=== PATIENT | female | born 1955 | race Caucasian/White ===

== ENCOUNTER 2016-03-27 16:48 | Emergency (ER) | payer MEDICARE, MEDICAID | END 2016-03-27 18:25 | disposition left against medical advice (07) | LOC: ER 16:48 | DX: Z53.21 Procedure and treatment not carried out due to patient leaving prior to being seen by health care provider (principal) ==

== ENCOUNTER 2016-03-30 17:11 | Emergency (ER) | payer MEDICARE, MEDICAID ==
[2016-03-30 17:31] VITALS: BP 121/67; TEMP 98.7
[2016-03-30] MEDS ORDERED: FUROSEMIDE 40 MG TAB PO ONE (17:46)
--- NOTE | 2016-03-30 17:48 | ED.PDOC ---
History of Present Illness - General Chief Complaint: General Stated Complaint: bilateral leg and foot swelling Time Seen by Provider: 03/30/16 17:15 Source: patient Exam Limitations: no limitations - History of Present Illness Initial Comments: The patient is a 60-year-old female presenting to the emergency room secondary to painful edema. She reports that she's had edema for the last month and is only getting worse. She's feeling a little bit of shortness of breath when she lays back but mainly she feels that that is due to sleep possible sleep apnea issues that may not yet have been addressed. No cough. No shortness of breath otherwise. No palpitations. No syncope or near syncope. She is not on a daily diuretic. She was recently given gabapentin to take in addition to her Lyrica and meloxicam. Timing/Duration: 1 week, constant, getting worse Severity: moderate Improving Factors: nothing Worsening Factors: nothing Associated Symptoms: denies symptoms Allergies/Adverse Reactions: Allergies NO KNOWN ALLERGY Allergy (Verified 09/15/15 14:08) Home Medications: Ambulatory Orders Dabigatran Etexilate Mesylate [Pradaxa] 150 mg PO DAILY 09/20/14 Lisinopril 10 mg PO DAILY 09/20/14 Meloxicam 15 mg PO DAILY 09/20/14 Metoprolol Tartrate 25 mg PO BID 09/20/14 Sertraline HCl 100 mg PO DAILY 09/20/14 Tramadol HCl 50 mg PO QID #20 tab 04/20/15 raNITIdine HCL [Zantac] 150 mg PO BID #20 tab 04/20/15 Prednisone [Deltasone] 40 mg PO DAILY #20 tab 10/15/15 Furosemide [Lasix] 40 mg PO DAILY #3 tab 03/30/16 Review of Systems - Review of Systems Constitutional: States: no symptoms reported EENTM: States: no symptoms reported Respiratory: States: no symptoms reported Cardiology: States: no symptoms reported Gastrointestinal/Abdominal: States: no symptoms reported Genitourinary: States: no symptoms reported Musculoskeletal: States: see HPI Skin: States: see HPI Neurological: States: other - chronic neuropathic pain Hematologic/Lymphatic: States: no symptoms reported All other Systems: No Change from Baseline Past Medical History (General) - Patient Medical History Hx Seizures: No Hx Stroke: No Hx Dementia: No Hx Asthma: No Hx of COPD: No Hx Cardiac Disorders: No Hx Congestive Heart Failure: No Hx Pacemaker: No Hx Hypertension: Yes Hx Thyroid Disease: No Hx Diabetes: No Hx Gastroesophageal Reflux: Yes Hx Renal Disease: No Hx Cancer: Yes - L breast Hx of HIV: No Hx Hepatitis C: No Hx MRSA: No MRSA Source:: Wound Surgical History: other - Vaccination History Hx Tetanus, Diphtheria Vaccination: No Hx Influenza Vaccination: Yes Hx Pneumococcal Vaccination: No Immunizations Up to Date: No - Social History Hx Tobacco Use: No Hx Chewing Tobacco Use: No Hx Alcohol Use: No Hx Substance Use: No Hx Substance Use Treatment: No Hx Depression: No Hx Physical Abuse: No Hx Emotional Abuse: No Hx Suspected Abuse: No - Activities of Daily Living Hospice Agency (if applicable):: None - Female History Patient is a Female of Child Bearing Age (10 -59 yrs old): No Patient : No Family Medical History - Family History Mother Living Status: Cause of : had impaction in colon Hx Family Hypertension: Yes Hx Cardiac Disease: Yes Hx Family Diabetes: Yes Physical Exam - Physical Exam General Appearance: Alert, Comfortable, No apparent distress Eye Exam: bilateral normal Ears, Nose, Throat: normal ENT inspection, normal pharynx Neck: full range of motion, supple, normal inspection Respiratory: chest non-tender, lungs clear, normal breath sounds, no respiratory distress, no accessory muscle use Cardiovascular/Chest: normal peripheral pulses, regular rate, rhythm Peripheral Pulses: radial,right: 2+, radial,left: 2+, dorsalis pedis,right: 2+, dorsalis pedis,left: 2+ Gastrointestinal/Abdominal: non tender - obese, soft Extremity: normal range of motion, no calf tenderness, normal capillary refill, pedal edema, swelling Neurologic: crepe sole wire brusher II-XII nml as tested, alert, normal mood/affect, oriented x 3 Skin Exam: normal color Comments: Vital Signs - 24 hr 03/30/16 17:23 Temperature 98.7 F Pulse Rate [ 64 pulse ox] Respiratory 20 Rate Blood Pressure 121/67 [Right Arm] O2 Sat by Pulse 95 Oximetry Progress - Progress Progress: 03/30/16 17:49 the patient is a 60-year-old female with painful edema to bilateral lower extremities. This does appear to have been a slow progression. It is likely related to several of her medications that she is taking. She is going to receive a large dose of oral Lasix here today and will be placed on 40 mg daily for the next 3 days. She needs to follow-up with her primary care doctor before the weekend for reevaluation of the edema and possible further medication adjustments to the likely offending agents. She also likely needs to be set up for a sleep apnea study if she has not had one in the past. Her probability of having sleep apnea is high. This may also be contributing to the edema. She can return to the emergency room for any acute worsening. Departure - Departure Clinical Impression: Edema extremities Disposition: Discharge to Home or Self Care Condition: Fair Departure Forms: ED Discharge - Pt. Copy, Patient Portal Self Enrollment Instructions: DI for Dependent Edema Diet: low salt diet Activity: increase activity as tolerated Referrals: Charu Tirado NP [Primary Care Provider] - 1-5 Days Prescriptions: Furosemide [Lasix] 40 mg PO DAILY #3 tab Home Medications: Ambulatory Orders Dabigatran Etexilate Mesylate [Pradaxa] 150 mg PO DAILY 09/20/14 Lisinopril 10 mg PO DAILY 09/20/14 Meloxicam 15 mg PO DAILY 09/20/14 Metoprolol Tartrate 25 mg PO BID 09/20/14 Sertraline HCl 100 mg PO DAILY 09/20/14 Tramadol HCl 50 mg PO QID #20 tab 04/20/15 raNITIdine HCL [Zantac] 150 mg PO BID #20 tab 04/20/15 Prednisone [Deltasone] 40 mg PO DAILY #20 tab 10/15/15 Furosemide [Lasix] 40 mg PO DAILY #3 tab 03/30/16 Additional Instructions: the patient is a 60-year-old female with painful edema to bilateral lower extremities. This does appear to have been a slow progression. It is likely related to several of her medications that she is taking. She is going to receive a large dose of oral Lasix here today and will be placed on 40 mg daily for the next 3 days. She needs to follow-up with her primary care doctor before the weekend for reevaluation of the edema and possible further medication adjustments to the likely offending agents. She also likely needs to be set up for a sleep apnea study if she has not had one in the past. Her probability of having sleep apnea is high. This may also be contributing to the edema. She can return to the emergency room for any acute worsening.
[2016-03-30 18:02] VITALS: O2SAT 97
== END 2016-03-30 18:02 | disposition home or self-care (01) ==
LOC: ER 17:11
DX: R60.0 Localized edema (principal); I10 Essential (primary) hypertension; K21.9 Gastro-esophageal reflux disease without esophagitis; Z85.3 Personal history of malignant neoplasm of breast; Z79.899 Other long term (current) drug therapy

== ENCOUNTER 2016-08-14 21:30 | Emergency (ER) | payer MEDICARE, MEDICAID ==
[2016-08-14 21:56] VITALS: BP 128/60; TEMP 98.9; O2SAT 95
--- NOTE | 2016-08-14 22:29 | RAD ---
EXAM DESCRIPTION: Elbow,Right 2 Views (accession [id number]), Forearm,Right (accession [id number]) CLINICAL HISTORY: fall COMPARISON: None FINDINGS: AP, lateral and oblique views of the right elbow, and two views of the right forearm were submitted. There is a nondisplaced radial head fracture. Abnormal anterior and posterior fat pad signs compatible with a joint fluid collection. There is no radiopaque foreign body material. IMPRESSION: Acute nondisplaced radial head fracture. Electronically signed by: Gordo Cohn MD 08/14/2016 10:28 PM CDT
--- NOTE | 2016-08-14 22:29 | RAD ---
EXAM DESCRIPTION: Elbow,Right 2 Views (accession [id number]), Forearm,Right (accession [id number]) CLINICAL HISTORY: fall COMPARISON: None FINDINGS: AP, lateral and oblique views of the right elbow, and two views of the right forearm were submitted. There is a nondisplaced radial head fracture. Abnormal anterior and posterior fat pad signs compatible with a joint fluid collection. There is no radiopaque foreign body material. IMPRESSION: Acute nondisplaced radial head fracture. Electronically signed by: Gordo Cohn MD 08/14/2016 10:28 PM CDT
--- NOTE | 2016-08-14 22:47 | ED.PDOC ---
History of Present Illness - General Chief Complaint: Upper Extremity Injury Stated Complaint: r. arm pain Time Seen by Provider: 08/14/16 22:33 Source: patient Exam Limitations: no limitations - History of Present Illness Initial Comments: the patient is a 61-year-old female presenting to the emergency room secondary to pain in her right elbow. The patient had walked around a corner and tripped over a fishing pole and had fallen and tried to catch herself on the door jam. In doing so she injured her right elbow. She has pain to the lateral aspect. She does appear to be neurovascularly preserved and there does not appear to be any significant deformity or laceration there. She has pain with both active and passive range of motion. No pain in the shoulder or the hand or wrist at this time. No other injuries. Timing/Duration: momentarily Severity: moderate Improving Factors: immobilization Worsening Factors: movement Associated Symptoms: denies symptoms Allergies/Adverse Reactions: Allergies NO KNOWN ALLERGY Allergy (Verified 09/15/15 14:08) Home Medications: Ambulatory Orders Dabigatran Etexilate Mesylate [Pradaxa] 150 mg PO DAILY 09/20/14 Lisinopril 10 mg PO DAILY 09/20/14 Meloxicam 15 mg PO DAILY 09/20/14 Metoprolol Tartrate 25 mg PO BID 09/20/14 Sertraline HCl 100 mg PO DAILY 09/20/14 Tramadol HCl 50 mg PO QID #20 tab 04/20/15 raNITIdine HCL [Zantac] 150 mg PO BID #20 tab 04/20/15 Prednisone [Deltasone] 40 mg PO DAILY #20 tab 10/15/15 Furosemide [Lasix] 40 mg PO DAILY #3 tab 03/30/16 Txmpactdqlfmb-Udgz-Mwdgwvaiji [Fioricet] 1 ea PO Q8H PRN #21 tab 08/14/16 Review of Systems - Review of Systems Review of Systems: 08/14/16 22:46 for change in baseline symptoms or new symptoms Constitutional: States: no symptoms reported EENTM: States: no symptoms reported Respiratory: States: no symptoms reported Cardiology: States: no symptoms reported Gastrointestinal/Abdominal: States: no symptoms reported Genitourinary: States: no symptoms reported Musculoskeletal: States: see HPI Skin: States: no symptoms reported Neurological: States: no symptoms reported Endocrine: States: no symptoms reported All other Systems: No Change from Baseline Past Medical History (General) - Patient Medical History Hx Seizures: No Hx Stroke: No Hx Dementia: No Hx Asthma: No Hx of COPD: No Hx Cardiac Disorders: No Hx Congestive Heart Failure: No Hx Pacemaker: No Hx Hypertension: Yes Hx Thyroid Disease: No Hx Diabetes: No Hx Gastroesophageal Reflux: Yes Hx Renal Disease: No Hx Cancer: Yes Hx of HIV: No Hx Hepatitis C: No Hx MRSA: No MRSA Source:: Wound Surgical History: cholecystectomy - Vaccination History Hx Tetanus, Diphtheria Vaccination: No Hx Influenza Vaccination: Yes Hx Pneumococcal Vaccination: No Immunizations Up to Date: Yes - Social History Hx Tobacco Use: No Hx Chewing Tobacco Use: No Hx Alcohol Use: No Hx Substance Use: No Hx Substance Use Treatment: No Hx Depression: No Hx Physical Abuse: No Hx Emotional Abuse: No Hx Suspected Abuse: No - Activities of Daily Living Hospice Agency (if applicable):: None - Female History Patient is a Female of Child Bearing Age (10 -59 yrs old): No Patient : No Family Medical History - Family History Mother Family History: Unknown Living Status: Cause of : had impaction in colon Hx Family Hypertension: Yes Hx Cardiac Disease: Yes Hx Family Diabetes: Yes Physical Exam - Physical Exam General Appearance: Alert, No apparent distress Eye Exam: bilateral normal Ears, Nose, Throat: hearing grossly normal, normal pharynx Respiratory: no respiratory distress, no accessory muscle use Cardiovascular/Chest: normal peripheral pulses, other - regular rate Peripheral Pulses: radial,right: 2+, radial,left: 2+, dorsalis pedis,right: 2+, dorsalis pedis,left: 2+ Gastrointestinal/Abdominal: other - obese Rectal Exam: deferred Extremity: no calf tenderness, normal capillary refill, other - +1 edema bilateral lower extremities. Pain in the right elbow as described above. No obvious crepitus. Neurologic: jacquard loom weaver II-XII nml as tested, alert, normal mood/affect, oriented x 3 Skin Exam: normal color Comments: Vital Signs - 24 hr 08/14/16 21:50 Temperature 98.9 F Pulse Rate [ 70 left] Respiratory 18 Rate Blood Pressure 128/60 [left] O2 Sat by Pulse 95 Oximetry Progress - Progress Progress: 08/14/16 22:49 the patient is a 61-year-old female presenting with a right radial head fracture with minimal displacement. I do believe there is a good chance of this healing well in its current position. The patient will be placed in a sling. She is not a good candidate for a splint. The patient will be written Fioricet for pain control. She can additionally use Aleve twice daily with some food to help reduce discomfort. She should follow-up with Dr. Navas next week for a second opinion on the fracture. She is neurovascularly intact in the extremity at this time. ER warnings were given. - Results/Orders Results/Orders: x-ray of the right elbow shows a nondisplaced radial head fracture. No other obvious fracture seen. Does not appear to be significantly comminuted. Departure - Departure Clinical Impression: Radial head fracture, closed Qualifiers: Encounter type: initial encounter Fracture alignment: nondisplaced Laterality: right Qualified Code(s): S52.124A - Nondisplaced fracture of head of right radius, initial encounter for closed fracture Disposition: Discharge to Home or Self Care Condition: Fair Departure Forms: ED Discharge - Pt. Copy, Patient Portal Self Enrollment Instructions: DI for Elbow Fracture Diet: low fat, low cholesterol Activity: no pushing/pulling with affected limb Referrals: Charu Tirado NP [Primary Care Provider] - 1-2 Weeks Prescriptions: Xkcpkdgozbkfm-Sloj-Hpziwlatgo [Fioricet] 1 ea PO Q8H PRN #21 tab PRN Reason: Pain Home Medications: Ambulatory Orders Dabigatran Etexilate Mesylate [Pradaxa] 150 mg PO DAILY 09/20/14 Lisinopril 10 mg PO DAILY 09/20/14 Meloxicam 15 mg PO DAILY 09/20/14 Metoprolol Tartrate 25 mg PO BID 09/20/14 Sertraline HCl 100 mg PO DAILY 09/20/14 Tramadol HCl 50 mg PO QID #20 tab 04/20/15 raNITIdine HCL [Zantac] 150 mg PO BID #20 tab 04/20/15 Prednisone [Deltasone] 40 mg PO DAILY #20 tab 10/15/15 Furosemide [Lasix] 40 mg PO DAILY #3 tab 03/30/16 Qahzhsqrvojjs-Uayb-Ftnryxhsaj [Fioricet] 1 ea PO Q8H PRN #21 tab 08/14/16 Additional Instructions: the patient is a 61-year-old female presenting with a right radial head fracture with minimal displacement. I do believe there is a good chance of this healing well in its current position. The patient will be placed in a sling. She is not a good candidate for a splint. The patient will be written Fioricet for pain control. She can additionally use Aleve twice daily with some food to help reduce discomfort. She should follow-up with Dr. Navas next week for a second opinion on the fracture. She is neurovascularly intact in the extremity at this time. ER warnings were given.
[2016-08-14] MEDS: HYDROcodone 7.5MG/APAP 325MG 1 EA TAB PO ONE (22:50)
== END 2016-08-14 23:00 | disposition home or self-care (01) ==
LOC: ER 21:30
DX: S52.124A Nondisplaced fracture of head of right radius, initial encounter for closed fracture (principal); I10 Essential (primary) hypertension; K21.9 Gastro-esophageal reflux disease without esophagitis; Z85.9 Personal history of malignant neoplasm, unspecified; Z79.899 Other long term (current) drug therapy; W01.198A Fall on same level from slipping, tripping and stumbling with subsequent striking against other object, initial encounter; Y92.9 Unspecified place or not applicable

== ENCOUNTER → 2016-08-20 | Outpatient (CLI) | payer MEDICARE, MEDICAID ==
--- NOTE | 2016-08-20 14:19 | RAD ---
EXAM DESCRIPTION: Elbow,Right 3 Views CLINICAL HISTORY: PAIN IN RIGHT ELBOW COMPARISON: August 14, 2016 TECHNIQUE: AP, Lateral, and Oblique FINDINGS: Two views of the right elbow demonstrate evidence of a hemarthrosis with distention of the fat pads both anteriorly and posteriorly. Small bone fragments previously seen overlying the coronoid process on the lateral view are less apparent. On the current oblique view nondisplaced radial head fracture is evident the distal humerus and proximal ulna are essentially normal in appearance on today's study. IMPRESSION: 1. Nondisplaced radial head fracture with joint effusion or hemarthrosis. Electronically signed by: Gunnar Lerma MD 08/20/2016 2:18 PM CDT
== END | disposition home or self-care (01) ==
LOC: RAD 08:21
PROVIDERS: ATTEND Orthopaedic Surgery
DX: M25.521 Pain in right elbow (principal); R73.01 Impaired fasting glucose; E78.1 Pure hyperglyceridemia

== ENCOUNTER 2016-08-25 09:23 | Emergency (ER) | payer MEDICARE, MEDICAID ==
[2016-08-25] MEDS ORDERED: ONDANSETRON INJ 4 MG/2 ML VIAL IV ONE ×2 (09:43→10:23)
[2016-08-25] MEDS ORDERED: ASPIRIN TABLET 325 MG TAB PO ONE (09:43)
[2016-08-25] MEDS ORDERED: SODIUM CHLORIDE 0.9% (FLUSH) 10 ML SYG IV PRN (09:43)
[2016-08-25] MEDS ORDERED: NITROGLYCERIN 0.4 MG 25 EA TAB SL ONE (09:43)
--- NOTE | 2016-08-25 10:11 | RAD ---
Portable chest INDICATION: Chest pain IMPRESSION: Normal heart size. No failure. No focal infiltrate. No pleural effusion or pneumothorax. Electronically signed by: Nguyễn Stewart MD 08/25/2016 10:09 AM CDT
--- NOTE | 2016-08-25 10:22 | ED.PDOC ---
History of Present Illness - General Chief Complaint: Cardiovascular Problem Stated Complaint: chest pain Time Seen by Provider: 08/25/16 09:41 Source: patient Exam Limitations: no limitations - History of Present Illness Initial Comments: N/V/D STARTED 3 AM TODAY. V X 6 AND DIARHEA X 6. R-SIDED CHEST PAIN FROM BREAKING R ARM 1 WK AGO. EPIGASTRIC CRAMPING. . Improving Factors: nothing Worsening Factors: nothing Associated Symptoms: nausea/vomiting Allergies/Adverse Reactions: Allergies NO KNOWN ALLERGY Allergy (Verified 08/25/16 11:50) Home Medications: Ambulatory Orders Dabigatran Etexilate Mesylate [Pradaxa] 150 mg PO DAILY 09/20/14 Lisinopril 10 mg PO DAILY 09/20/14 Meloxicam 15 mg PO DAILY 09/20/14 Metoprolol Tartrate 25 mg PO BID 09/20/14 Sertraline HCl 100 mg PO DAILY 09/20/14 Tramadol HCl 50 mg PO QID #20 tab 04/20/15 raNITIdine HCL [Zantac] 150 mg PO BID #20 tab 04/20/15 ARIPiprazole [Abilify] 5 mg PO DAILY 08/25/16 Gabapentin 300 mg PO TID 08/25/16 Pregabalin [Lyrica] 100 mg PO TID 08/25/16 Review of Systems - Review of Systems Constitutional: States: weakness. Denies: fever EENTM: States: no symptoms reported Respiratory: Denies: cough, short of breath Cardiology: States: see HPI. Denies: edema, palpitations, syncope Gastrointestinal/Abdominal: States: diarrhea, nausea, vomiting, other - EPIGASTRIC DISCOMFORT BUT NO ISOLATED ABD PAIN. Genitourinary: States: no symptoms reported Musculoskeletal: States: joint pain Skin: States: no symptoms reported Neurological: States: no symptoms reported Endocrine: States: no symptoms reported Hematologic/Lymphatic: States: no symptoms reported All other Systems: Reviewed and Negative Past Medical History (General) - Patient Medical History Hx Seizures: No Hx Stroke: No Hx Dementia: No Hx Asthma: No Hx of COPD: No Hx Cardiac Disorders: No Hx Congestive Heart Failure: No Hx Pacemaker: No Hx Hypertension: Yes Hx Thyroid Disease: No Hx Diabetes: No Hx Gastroesophageal Reflux: Yes Hx Renal Disease: No Hx Cancer: Yes - breast Hx of HIV: No Hx Hepatitis C: No Hx MRSA: No MRSA Source:: Wound Surgical History: cholecystectomy - Vaccination History Hx Tetanus, Diphtheria Vaccination: No Hx Influenza Vaccination: No Hx Pneumococcal Vaccination: No - Social History Hx Tobacco Use: No Hx Chewing Tobacco Use: No Hx Alcohol Use: No Hx Substance Use: No Hx Substance Use Treatment: No Hx Depression: No Hx Physical Abuse: No Hx Emotional Abuse: No Hx Suspected Abuse: No - Activities of Daily Living Hospice Agency (if applicable):: None - Female History Patient is a Female of Child Bearing Age (10 -59 yrs old): No Patient : No Family Medical History - Family History Mother Family History: Unknown Living Status: Cause of : had impaction in colon Hx Family Hypertension: Yes Hx Cardiac Disease: Yes Hx Family Diabetes: Yes Physical Exam - Physical Exam General Appearance: Alert, Well Nourished Eye Exam: bilateral normal Ears, Nose, Throat: hearing grossly normal, normal ENT inspection, normal pharynx Neck: non-tender, full range of motion Respiratory: chest non-tender, lungs clear Cardiovascular/Chest: normal peripheral pulses, no gallop, no JVD, no murmur Peripheral Pulses: radial,right: 2+, radial,left: 2+ Gastrointestinal/Abdominal: normal bowel sounds, soft, no organomegaly, no pulsatile mass, other - UNCOMFORTABLE IN EPIGASTRIC BUT NO GUARDING OR REBOUND. Back Exam: no CVA tenderness Extremity: normal inspection, pedal edema Neurologic: alert, oriented x 3 Skin Exam: normal color, warm/dry Lymphatic: no adenopathy Progress - Progress Progress: 08/25/16 12:21 PT STATES SHE IS FEELING MUCH BETTER SINCE THE IVF AND IS REQUESTING TO GO HOME. HER R-SIDED CHEST PAIN WAS DUE TO THE R ARM FRACTURE. INITIAL C.P. W/U WAS PERFORMED TO ENSURE NO CARDIAC COMPROMISE AND WAS NEG. D-DIMER JUST SLIGHTLY ELEVATED BUT NOT TO THE LEVEL SEEN IN P.E., THUS CHEST C.T. IS NOT INDICATED AND NOT CLINICALLY C/W P.E. WBC 16. EKG SINUS; PATHOLOGIC Q-WAVE IN TWO CONTIGUOUS INFERIOR LEADS, INDICATIVE OF A FORMER AGE-INDETERMINATE INFERIOR INFARCT. INR, CXR, RAPID FLU, CMP, BNP, CARDIAC ENZ NEG. SAFE FOR D/C TO HOME WITH FOLLOW UP. PT DECLINED OFFER FOR ANTI-NAUSEA MEDS. 08/25/16 12:25 08/25/16 12:29 08/25/16 12:37 Departure - Departure Clinical Impression: Gastroenteritis, Musculoskeletal chest pain, Leukocytosis, Sinus tachycardia, Q waves suggestive of previous myocardial infarction Disposition: Discharge to Home or Self Care Condition: Good Departure Forms: ED Discharge - Pt. Copy, Patient Portal Self Enrollment Instructions: DI for Viral Gastroenteritis -- Adult Diet: bland diet Activity: increase activity as tolerated Referrals: Charu Tirado, PUBLIC RELATIONS SPECIALIST [Primary Care Provider] - 1 Week Home Medications: Ambulatory Orders Dabigatran Etexilate Mesylate [Pradaxa] 150 mg PO DAILY 09/20/14 Lisinopril 10 mg PO DAILY 09/20/14 Meloxicam 15 mg PO DAILY 09/20/14 Metoprolol Tartrate 25 mg PO BID 09/20/14 Sertraline HCl 100 mg PO DAILY 09/20/14 Tramadol HCl 50 mg PO QID #20 tab 04/20/15 raNITIdine HCL [Zantac] 150 mg PO BID #20 tab 04/20/15 ARIPiprazole [Abilify] 5 mg PO DAILY 08/25/16 Gabapentin 300 mg PO TID 08/25/16 Pregabalin [Lyrica] 100 mg PO TID 08/25/16 Additional Instructions: Please be sure to drink plenty of fluids and get lots of rest.
[2016-08-25] MEDS ORDERED: SODIUM CHLORIDE 0.9% 1000ML 1,000 ML IVS ONE (10:24)
[2016-08-25 11:50] VITALS: TEMP 97.4
[2016-08-25 12:35] VITALS: BP 132/75; O2SAT 97
== END 2016-08-25 12:34 | disposition home or self-care (01) ==
LOC: ER 09:23
DX: K52.9 Noninfective gastroenteritis and colitis, unspecified (principal); R07.89 Other chest pain; D72.829 Elevated white blood cell count, unspecified; R00.0 Tachycardia, unspecified; R94.31 Abnormal electrocardiogram [ECG] [EKG]; I10 Essential (primary) hypertension; K21.9 Gastro-esophageal reflux disease without esophagitis; Z85.3 Personal history of malignant neoplasm of breast; Z79.899 Other long term (current) drug therapy
CPT/HCPCS: 36415; 71010; 80048; 82550; 82553; 83880; 84484; 85025; 85379; 85610; 85730; 87804; 93005; J2405; J7030

== ENCOUNTER → 2016-09-03 | Outpatient (CLI) | payer MEDICARE, MEDICAID ==
--- NOTE | 2016-09-06 18:06 | RAD ---
EXAM DESCRIPTION: Elbow,Right 3 Views CLINICAL HISTORY: FX OF RADIAL HEAD- RIGHT COMPARISON: August 20, 2016 and August 14, 2016 TECHNIQUE: AP, Lateral, and Oblique FINDINGS: Comminuted intra-articular impaction type fracture of the radius is observed with alignment unchanged since recent previous. No healing observed. Avulsion fracture of the coronoid process of the ulna observed without significant displacement. Displacement anterior and posterior fat pads consistent with hemarthrosis. IMPRESSION: 1. Proximal radius and ulna fractures Electronically signed by: Stephan Gallardo MD 09/06/2016 6:04 PM CDT
== END | disposition home or self-care (01) ==
LOC: RAD 08:05
PROVIDERS: ATTEND Orthopaedic Surgery
DX: S52.124D Nondisplaced fracture of head of right radius, subsequent encounter for closed fracture with routine healing (principal); X58.XXXA Exposure to other specified factors, initial encounter

== ENCOUNTER 2016-12-20 11:53 | Emergency (ER) | payer MEDICARE, MEDICAID ==
[2016-12-20 12:36] VITALS: TEMP 99.3
--- NOTE | 2016-12-20 13:42 | RAD ---
EXAM DESCRIPTION: Chest,2 Views CLINICAL HISTORY: 61 years, Female, cough/congestion COMPARISON: Chest x-ray dated 08/25/2016 FINDINGS: PA and lateral chest radiographs were performed. The lungs are moderately expanded and clear. The costophrenic sulci are sharp. The cardiac silhouette, hilar regions, trachea, soft tissues and bony structures are unremarkable aside from degenerative changes. No significant change since the prior study. IMPRESSION: No acute cardiopulmonary disease. Electronically signed by: Riddhi Velazquez MD 12/20/2016 1:41 PM [facility]
[2016-12-20] MEDS ORDERED: AZITHROMYCIN 250 MG TAB PO ONE (13:49)
[2016-12-20] MEDS ORDERED: methylPREDNISolone SODIUM SUC 125 MG/2 ML VIAL IM ONE (13:52)
--- NOTE | 2016-12-20 13:52 | ED.PDOC ---
History of Present Illness - General Chief Complaint: Respiratory Problem Stated Complaint: cough, congestion Time Seen by Provider: 12/20/16 12:38 Source: patient, RN notes reviewed, Vital Signs reviewed Exam Limitations: no limitations - History of Present Illness Comments: Patient comes to ER with cough and congestion. Reports it started ~ 2 weeks ago , improved and then worsened again. PCP started her on Albuterol inhaler and Bactrim DS and she is just feeling worse. Timing/Duration: week, getting worse Cough Quality/Degree: moderate Possible Cause: illness exposure Improving Factors: nothing Worsening Factors: nothing Associated Symptoms: cough, facial pain, fever/chills, nasal congestion, nasal drainage Respiratory Risk Factors: exposure to illness Allergies/Adverse Reactions: Allergies NO KNOWN ALLERGY Allergy (Verified 12/20/16 12:40) Home Medications: Ambulatory Orders Dabigatran Etexilate Mesylate [Pradaxa] 150 mg PO BID 09/20/14 Lisinopril 10 mg PO DAILY 09/20/14 Metoprolol Tartrate 25 mg PO BID 09/20/14 Sertraline HCl 100 mg PO DAILY 09/20/14 ARIPiprazole [Abilify] 5 mg PO DAILY 08/25/16 Pregabalin [Lyrica] 100 mg PO TID 08/25/16 Albuterol Inhaler [Ventolin Hfa Inhaler] 2 puff INH Q4H PRN 12/20/16 Azithromycin Tab [Zithromax] 250 mg PO QD #4 tab 12/20/16 Sulfa/Trimeth 800/160 (Ds) Tab [Bactrim DS] 1 tablet PO BID 12/20/16 Tramadol HCl 50 mg PO QID PRN 12/20/16 Review of Systems - Review of Systems Constitutional: States: see HPI, fever, malaise EENTM: States: see HPI, nose congestion, throat pain Respiratory: States: cough. Denies: short of breath, wheezing Cardiology: States: no symptoms reported Gastrointestinal/Abdominal: States: no symptoms reported Musculoskeletal: States: no symptoms reported Skin: States: no symptoms reported Neurological: States: headache All other Systems: No Change from Baseline Past Medical History (General) - Patient Medical History Hx Seizures: No Hx Stroke: No Hx Dementia: No Hx Asthma: No Hx of COPD: No Hx Cardiac Disorders: No Hx Congestive Heart Failure: No Hx Pacemaker: No Hx Hypertension: Yes Hx Thyroid Disease: No Hx Diabetes: No Hx Gastroesophageal Reflux: Yes Hx Renal Disease: No Hx Cancer: Yes - breast Hx of HIV: No Hx Hepatitis C: No Hx MRSA: No MRSA Source:: Wound - Vaccination History Hx Tetanus, Diphtheria Vaccination: No Hx Influenza Vaccination: Yes - 2016 Hx Pneumococcal Vaccination: Yes - 2014 - Social History Hx Tobacco Use: No Hx Chewing Tobacco Use: No Hx Alcohol Use: No Hx Substance Use: No Hx Substance Use Treatment: No Hx Depression: No Hx Physical Abuse: No Hx Emotional Abuse: No Hx Suspected Abuse: No - Female History Patient : No Family Medical History - Family History Mother Family History: Unknown Living Status: Cause of : had impaction in colon Hx Family Hypertension: Yes Hx Cardiac Disease: Yes Hx Family Diabetes: Yes Physical Exam - Physical Exam General Appearance: Alert, No apparent distress, Ill Appearing, Obese, Well Hydrated, Well Nourished Eye Exam: bilateral normal ENT Exam: hearing grossly normal, nasal congestion, pharyngeal erythema Neck: full range of motion, supple, lymphadenopathy (R), lymphadenopathy (L) Respiratory: lungs clear, normal breath sounds, no respiratory distress, no accessory muscle use Cardiovascular/Chest: regular rate, rhythm, no gallop, no murmur Extremity: normal range of motion, normal inspection Neurologic: alert, normal mood/affect, oriented x 3 Skin Exam: normal color, warm/dry Comments: Vital Signs 12/20/16 12:28 Temperature 99.3 F Pulse Rate [ 90 Left Radial] Respiratory 24 Rate Blood Pressure 124/67 [Left Arm] O2 Sat by Pulse 91 L Oximetry Progress - EKG/XRAY/CT XRAY: chest - No acute cardiopulmonary disease per Radiologist Departure - Departure Clinical Impression: Bronchitis Sinusitis Qualifiers: Sinusitis location: maxillary Chronicity: acute Recurrence: non-recurrent Qualified Code(s): J01.00 - Acute maxillary sinusitis, unspecified Time of Disposition: 13:53 Disposition: Discharge to Home or Self Care Condition: Good Departure Forms: ED Discharge - Pt. Copy, Patient Portal Self Enrollment Instructions: Acute Bronchitis, DI for Sinusitis Diet: resume usual diet Activity: increase activity as tolerated Referrals: Jael Jimenez MD [Primary Care Provider] - 1-2 Weeks Prescriptions: Azithromycin Tab [Zithromax] 250 mg PO QD #4 tab Home Medications: Ambulatory Orders Dabigatran Etexilate Mesylate [Pradaxa] 150 mg PO BID 09/20/14 Lisinopril 10 mg PO DAILY 09/20/14 Metoprolol Tartrate 25 mg PO BID 09/20/14 Sertraline HCl 100 mg PO DAILY 09/20/14 ARIPiprazole [Abilify] 5 mg PO DAILY 08/25/16 Pregabalin [Lyrica] 100 mg PO TID 08/25/16 Albuterol Inhaler [Ventolin Hfa Inhaler] 2 puff INH Q4H PRN 12/20/16 Azithromycin Tab [Zithromax] 250 mg PO QD #4 tab 12/20/16 Sulfa/Trimeth 800/160 (Ds) Tab [Bactrim DS] 1 tablet PO BID 12/20/16 Tramadol HCl 50 mg PO QID PRN 12/20/16 Additional Instructions: Stop Bactrim Take Zithromax
[2016-12-20 14:28] VITALS: BP 125/89; O2SAT 93
== END 2016-12-20 14:21 | disposition home or self-care (01) ==
LOC: ER 11:53
DX: J40 Bronchitis, not specified as acute or chronic (principal); J01.00 Acute maxillary sinusitis, unspecified; I10 Essential (primary) hypertension; K21.9 Gastro-esophageal reflux disease without esophagitis; Z85.3 Personal history of malignant neoplasm of breast; Z79.899 Other long term (current) drug therapy
CPT/HCPCS: 71020; J2930; Q0144

== ENCOUNTER → 2017-03-29 | Outpatient (CLI) | payer MEDICARE, MEDICAID ==
--- NOTE | 2017-03-29 16:01 | MRI ---
EXAM DESCRIPTION: Lumbar Spine w/wo Contrast: Magnetic Resonance Imaging. CLINICAL HISTORY: LUMBAR PAIN, HX OF CANCER COMPARISON: MRI scan lumbar spine 07/16/2014. TECHNIQUE: Multiplanar, MRI, multiple standard sequences, without and with standard dose Gadolinium IV contrast, lumbar spine. No adverse reactions. FINDINGS: L5-S1: Disc desiccation moderate disc space loss. Grade 1 retrolisthesis. Grade 2 endplate reactive changes to the right of midline with disc spur complex encroaching on the foramen and abutting the exiting right L5 nerve. Left side Modic type I endplate reactive changes with disc spur complex abutting the exiting left L5 nerve. Posterior 4 mm bulge abutting the thecal sac. Posterior flavum ligaments and facets are unremarkable. Modic type I endplate reaction on the left is enhancing. Well-circumscribed bright object in the L5 vertebral body on T1 and T2 sequences without enhancement consistent with a hemangioma, possibly reactive. L4-5: Disc desiccation and moderate disc space loss. Type II Modic endplate reactive changes in the midline into the left of midline with disc spur complex causing on the foramen and abutting the exiting left L4 nerve. Modic type I endplate reactive changes to the right of midline with disc spur complex abutting the foramen and the exiting right L4 nerve. Trace retrolisthesis. Minimal disc bulge. Hypertrophy of the flavum ligaments and facet arthrosis abutting the thecal sac with moderate canal narrowing. No abnormal enhancement. L3-4: Disc desiccation minimal disc space loss anterior bulge and anterior endplate spurs. 3 mm bulge in the midline with larger bulge bilaterally into the foramina and mild narrowing. No nerve impingement. Minimal facet arthrosis and flavum ligament hypertrophy with moderate canal narrowing. Annular fissure in the segment of disc bulging into the right foramen with enhancement. L2-3: Disc desiccation and minimal disc space loss. Posterior, and midline 4 mm bulge. Bright signal in the posterior margin to the left of midline with enhancement. Modic type II endplate reactive changes to the left of midline and disc spur complex encroaching on the left foramen abutting the exiting left L2 nerve. Posterior facet arthrosis and flavum ligament hypertrophy resulting in moderate canal narrowing. No abnormal contrast enhancement. L1-2: Conus terminates at this level. Disc desiccation and minimal disc space loss. Anterior bulging and endplate ridging. Anterior Modic type II endplate reactive changes. Similar findings on the left lateral posterior margin of the endplates with possible calcified signal versus gas signal in the disc. Posterior midline and left paracentral disc osteophyte complex bulge or small protrusion abutting the cord and the descending left S2 nerve. Minimal ligament hypertrophy abutting the posterior cord, more on the left. Left paracentral canal stenosis. Bilateral mild foraminal narrowing. T12-L1: Minimal disc desiccation. Minimal bulging into the bilateral foramina but not abutting the nerve roots. Minimal hypertrophy of the posterior ligaments and facets are unremarkable. Mild canal narrowing. Normal enhancement of the cord and disc and other elements at this level. Vertebral bodies are not compressed at any level. Normal marrow signal in the vertebral bodies and the posterior elements. Normal Contrast enhancement. Paravertebral soft tissues show muscle atrophy.Perivertebral contrast enhancement normal. IMPRESSION: 1. Spondylosis L5-S1 and disc desiccation with trace retrolisthesis. Right-sided disc osteophyte complex abutting the exiting right L5 nerve. Stable since the prior study. 2. Spondylosis L4-5 and moderate disc space loss. Right side disc osteophyte complex abutting the exiting right L4 nerve in the foramen. Canal nearly stenotic. 3. L3-4 disc bulge into the canal and bilateral end of the foramen. Mild to moderate narrowing on the right, Canal nearly stenotic. Annular fissure of the disc bulging into the right foramen. 4. L2-3: Spondylosis on the left with disc spur complex abutting the exiting left L2 nerve in the foramen. Canal nearly stenotic. Annular fissure left posterior disc margin. 5. L1-2 endplate spondylosis mostly anterior with its posterior disc protrusion encroaching on the cord and possibly the descending left L2 nerve. Left paracentral canal stenosis. This has progressed since the prior study. Electronically signed by: Amado Rodriguez MD 03/29/2017 4:00 PM [facility]
== END ==
LOC: MRI 08:00
PROVIDERS: ATTEND Anesthesiology Pain Medicine
DX: M51.26 Other intervertebral disc displacement, lumbar region (principal); M47.896 Other spondylosis, lumbar region; Z85.9 Personal history of malignant neoplasm, unspecified

== ENCOUNTER 2017-04-24 07:46 | Emergency (ER) | payer MEDICARE, MEDICAID ==
--- NOTE | 2017-04-24 07:55 | ED.PDOC ---
History of Present Illness - General Chief Complaint: Dental/Mouth Stated Complaint: Toothache Time Seen by Provider: 04/24/17 07:53 Source: patient, RN notes reviewed Exam Limitations: no limitations Additional Information: 61 YEAR OLD HERE FOR EVALUATION OF TOOTH ACHE STARTED 4 DAYS AGO GETTING WORSE NO ASSOCIATED FEVER CHILLS SHE IS A RECENTLY DIAGNOSED DIABETIC SHE ALSO HAS HISTORY OF LEFT MASTECTOMY AND CHOLECYSTECTOMY - History of Present Illness Timing/Duration: 24 hours, 1 week Severity: moderate Improving Factors: nothing Worsening Factors: nothing Associated Symptoms: denies symptoms Allergies/Adverse Reactions: Allergies NO KNOWN ALLERGY Allergy (Verified 12/20/16 12:40) Home Medications: Ambulatory Orders Dabigatran Etexilate Mesylate [Pradaxa] 150 mg PO BID 09/20/14 Lisinopril 10 mg PO DAILY 09/20/14 Metoprolol Tartrate 25 mg PO BID 09/20/14 Sertraline HCl 100 mg PO DAILY 09/20/14 ARIPiprazole [Abilify] 5 mg PO DAILY 08/25/16 Pregabalin [Lyrica] 100 mg PO TID 08/25/16 Albuterol Inhaler [Ventolin Hfa Inhaler] 2 puff INH Q4H PRN 12/20/16 Azithromycin Tab [Zithromax] 250 mg PO QD #4 tab 12/20/16 Sulfa/Trimeth 800/160 (Ds) Tab [Bactrim DS] 1 tablet PO BID 12/20/16 Tramadol HCl 50 mg PO QID PRN 12/20/16 Acetamin W/Cod #3 Tab [Tylenol w/CODEINE #3] 1 ea PO Q6HR PRN #40 tab 04/24/17 Clindamycin HCl [Cleocin] 300 mg PO Q6H #40 cap 04/24/17 Review of Systems - Review of Systems Constitutional: States: no symptoms reported EENTM: States: see HPI Respiratory: States: no symptoms reported Cardiology: States: no symptoms reported Gastrointestinal/Abdominal: States: no symptoms reported Genitourinary: States: no symptoms reported Musculoskeletal: States: no symptoms reported Skin: States: no symptoms reported Neurological: States: no symptoms reported Endocrine: States: no symptoms reported Hematologic/Lymphatic: States: no symptoms reported Past Medical History (General) - Patient Medical History Hx Seizures: No Hx Stroke: No Hx Dementia: No Hx Asthma: No Hx of COPD: No Hx Cardiac Disorders: No Hx Congestive Heart Failure: No Hx Pacemaker: No Hx Hypertension: Yes Hx Thyroid Disease: No Hx Diabetes: No Hx Gastroesophageal Reflux: Yes Hx Renal Disease: No Hx Cancer: Yes - breast Hx of HIV: No Hx Hepatitis C: No Hx MRSA: No MRSA Source:: Wound - Vaccination History Hx Tetanus, Diphtheria Vaccination: No Hx Influenza Vaccination: Yes - 2016 Hx Pneumococcal Vaccination: Yes - 2014 - Social History Hx Tobacco Use: No Hx Chewing Tobacco Use: No Hx Alcohol Use: No Hx Substance Use: No Hx Substance Use Treatment: No Hx Depression: No Hx Physical Abuse: No Hx Emotional Abuse: No Hx Suspected Abuse: No - Female History Patient : No Family Medical History - Family History Mother Family History: Unknown Living Status: Cause of : had impaction in colon Hx Family Hypertension: Yes Hx Cardiac Disease: Yes Hx Family Diabetes: Yes Physical Exam - Physical Exam General Appearance: Alert Eye Exam: bilateral normal Ears, Nose, Throat: hearing grossly normal, other - SHE HAS VERY POOR DENTITION MOST OF THE TEETH IS DECAYED THE ONE ON THE RIGHT LOWER MOLAR IS ERODED AND HAS A LARGE CAVITY NO ABSCESS NO SUB MANDIBULAR SWELLING OR TENDER NODES NOTED ON EXAM Respiratory: chest non-tender, lungs clear, normal breath sounds Cardiovascular/Chest: normal peripheral pulses, regular rate, rhythm, no edema Gastrointestinal/Abdominal: normal bowel sounds, non tender, soft, no organomegaly Back Exam: normal inspection, no CVA tenderness, no vertebral tenderness Neurologic: stitcher standard machine II-XII nml as tested, no motor/sensory deficits, alert, normal mood/affect Departure - Departure Clinical Impression: Compound dental caries, Infected dental caries Disposition: Discharge to Home or Self Care Departure Forms: ED Discharge - Pt. Copy, Patient Portal Self Enrollment Instructions: DI for Mouth Pain Referrals: Jael Jimenez MD [Primary Care Provider] - 1-2 Weeks Prescriptions: Acetamin W/Cod #3 Tab [Tylenol w/CODEINE #3] 1 ea PO Q6HR PRN #40 tab PRN Reason: Mild To Moderate Pain Clindamycin HCl [Cleocin] 300 mg PO Q6H #40 cap Home Medications: Ambulatory Orders Dabigatran Etexilate Mesylate [Pradaxa] 150 mg PO BID 09/20/14 Lisinopril 10 mg PO DAILY 09/20/14 Metoprolol Tartrate 25 mg PO BID 09/20/14 Sertraline HCl 100 mg PO DAILY 09/20/14 ARIPiprazole [Abilify] 5 mg PO DAILY 08/25/16 Pregabalin [Lyrica] 100 mg PO TID 08/25/16 Albuterol Inhaler [Ventolin Hfa Inhaler] 2 puff INH Q4H PRN 12/20/16 Azithromycin Tab [Zithromax] 250 mg PO QD #4 tab 12/20/16 Sulfa/Trimeth 800/160 (Ds) Tab [Bactrim DS] 1 tablet PO BID 12/20/16 Tramadol HCl 50 mg PO QID PRN 12/20/16 Acetamin W/Cod #3 Tab [Tylenol w/CODEINE #3] 1 ea PO Q6HR PRN #40 tab 04/24/17 Clindamycin HCl [Cleocin] 300 mg PO Q6H #40 cap 04/24/17
[2017-04-24 07:56] VITALS: BP 125/85; TEMP 97.3; O2SAT 92
[2017-04-24] MEDS ORDERED: CLINDAMYCIN PHOSPHATE 150 MG/ML VIAL IM ONE (08:00)
[2017-04-24] MEDS ORDERED: KETOROLAC TROMETHAMINE INJ 60 MG/2 ML VIAL IM ONE (08:00)
== END 2017-04-24 08:32 | disposition home or self-care (01) ==
LOC: ER 07:46
DX: K02.9 Dental caries, unspecified (principal); K04.7 Periapical abscess without sinus; I10 Essential (primary) hypertension; K21.9 Gastro-esophageal reflux disease without esophagitis; Z85.3 Personal history of malignant neoplasm of breast
CPT/HCPCS: J1885; J3490

== ENCOUNTER 2017-06-24 17:13 | Inpatient (IN) | payer MEDICARE, MEDICAID ==
[2017-06-24] MEDS ORDERED: IPRATROPIUM/ALBUTEROL 3 ML VIAL NEB ONE ×2 (17:20)
[2017-06-24] MEDS ORDERED: IBUPROFEN 200 MG TAB PO ONE (17:41)
--- NOTE | 2017-06-24 18:08 | RAD ---
EXAM DESCRIPTION: Chest,2 Views CLINICAL HISTORY:61 years Female, sob Comparison: December 20, 2016 FINDINGS: Enlarged cardiac silhouette with bilateral interstitial airspace opacities representing pulmonary edema and/or atelectasis. Infectious process not excluded. No pleural effusion. No pneumothorax. No acute osseous abnormality. Soft tissues are unremarkable. Impression: Enlarged cardiac silhouette with bilateral interstitial airspace opacities representing pulmonary edema and/or atelectasis. Infectious process not excluded. Electronically signed by: Manny Rob MD 06/24/2017 6:07 PM CDT
[2017-06-24] MEDS ORDERED: FUROSEMIDE INJ 40 MG/4 ML VIAL IV ONE (18:11)
[2017-06-24] MEDS ORDERED: POTASSIUM CHLORIDE ELIXIR 20 MEQ/15 ML UD PO ONE (18:11)
[2017-06-24] MEDS ORDERED: cefTRIAXone SODIUM 1 GM in SODIUM CHL 0.9% 50ML MIN-BAG+ 50 ML IVPB ONE (18:31)
[2017-06-24] MEDS ORDERED: AZITHROMYCIN IV 500 MG in SODIUM CHLORIDE 0.9% 250ML 250 ML IVPB ONE (18:31)
[2017-06-24] MEDS ORDERED: SODIUM CHL 0.9% 50ML MIN-BAG+ 50 ML IVPB ONE (18:48)
[2017-06-24] MEDS ORDERED: AZITHROMYCIN IV 500 MG VIAL IVPB ONE (18:48)
[2017-06-24] MEDS ORDERED: SODIUM CHLORIDE 0.9% 250ML 250 ML ONE (18:48)
[2017-06-24] MEDS ORDERED: cefTRIAXone SODIUM 1 GM VIAL ONE (18:48)
--- NOTE | 2017-06-24 18:56 | ED.PDOC ---
History of Present Illness - General Chief Complaint: Chest Pain/[place] Stated Complaint: chest pain Time Seen by Provider: 06/24/17 17:23 Source: patient Exam Limitations: no limitations - History of Present Illness Initial Comments: the patient is 61-year-old female presenting to the emergency room secondary to severe shortness of breath with some mild associated chest discomfort when she was not short of breath. She does not know any fevers. She has had a cough that's been mildly productive for the last couple of days. No sore throat or runny nose but she does have a difficult time breathing through her nose. The patient is morbidly obese and does desaturate when lying back. She has a very small posterior oropharynx and I do suspect that she has an undiagnosed sleep apnea patient. Chest pain has resolved with oxygen. She does see Dr. Pichardo. She is on chronic anticoagulation with pradaxa. Timing/Duration: unsure Severity: severe Improving Factors: nothing Worsening Factors: nothing Associated Symptoms: cough, malaise, shortness of breath Allergies/Adverse Reactions: Allergies NO KNOWN ALLERGY Allergy (Verified 12/20/16 12:40) Home Medications: Ambulatory Orders Dabigatran Etexilate Mesylate [Pradaxa] 150 mg PO BID 09/20/14 Lisinopril 10 mg PO DAILY 09/20/14 Sertraline HCl 100 mg PO DAILY 09/20/14 ARIPiprazole [Abilify] 5 mg PO DAILY 08/25/16 Albuterol Inhaler [Ventolin Hfa Inhaler] 2 puff INH Q4H PRN 12/20/16 metFORMIN HCL [Glucophage] 500 mg PO BID 04/24/17 Metoprolol Tartrate 25 mg PO BID 06/24/17 Review of Systems - Review of Systems Constitutional: States: malaise EENTM: States: nose congestion Respiratory: States: cough, short of breath Cardiology: States: chest pain Gastrointestinal/Abdominal: States: no symptoms reported Genitourinary: States: no symptoms reported Musculoskeletal: States: no symptoms reported Skin: States: no symptoms reported Neurological: States: no symptoms reported Endocrine: States: no symptoms reported All other Systems: No Change from Baseline Past Medical History (General) - Patient Medical History Hx Seizures: No Hx Stroke: No Hx Dementia: No Hx Asthma: No Hx of COPD: No Hx Cardiac Disorders: Yes Hx Congestive Heart Failure: No Hx Pacemaker: No Hx Hypertension: Yes Hx Thyroid Disease: No Hx Diabetes: Yes Hx Gastroesophageal Reflux: Yes Hx Renal Disease: No Hx Cancer: Yes - breast Hx of HIV: No Hx Hepatitis C: No Hx MRSA: No MRSA Source:: Wound Surgical History: cholecystectomy - Vaccination History Hx Tetanus, Diphtheria Vaccination: No Hx Influenza Vaccination: Yes Hx Pneumococcal Vaccination: Yes - Social History Hx Tobacco Use: Yes Hx Chewing Tobacco Use: No Hx Alcohol Use: No Hx Substance Use: No Hx Substance Use Treatment: No Hx Depression: No Hx Physical Abuse: No Hx Emotional Abuse: No Hx Suspected Abuse: No - Female History Patient : No Family Medical History - Family History Mother Family History: Unknown Living Status: Cause of : had impaction in colon Hx Family Hypertension: Yes Hx Cardiac Disease: Yes Hx Family Diabetes: Yes Physical Exam - Physical Exam General Appearance: Alert, Other - oderate respiratory distress initially Eye Exam: bilateral normal Ears, Nose, Throat: normal ENT inspection, normal pharynx Neck: non-tender, full range of motion, supple Respiratory: respiratory distress, accessory muscle use, other - initially the patient did have some fine scattered rales that quickly improved with oxygenation. No wheezes. Decreased air movement at the bases. Still very mild persistentrales at bilateral bases. Cardiovascular/Chest: normal peripheral pulses, regular rate, rhythm Peripheral Pulses: radial,right: 2+, radial,left: 2+ Gastrointestinal/Abdominal: non tender, soft Rectal Exam: deferred Back Exam: normal inspection, no CVA tenderness Extremity: normal range of motion, non-tender, normal inspection, pedal edema - 1+ bilaterally Neurologic: chart clerk II-XII nml as tested, alert, normal mood/affect, oriented x 3 Skin Exam: normal color Comments: Vital Signs - 24 hr 06/24/17 06/24/17 06/24/17 17:35 17:56 18:10 Temperature 100.6 F H Pulse Rate 84 Pulse Rate [ 83 Left Ulnar] Respiratory 24 20 24 Rate Blood Pressure 124/79 [Left Arm] O2 Sat by Pulse 80 L 93 L Oximetry 06/24/17 18:14 Temperature Pulse Rate Pulse Rate [ 74 Left Ulnar] Respiratory 20 Rate Blood Pressure 109/57 [Left Arm] O2 Sat by Pulse 85 L Oximetry Progress - Progress Progress: 06/24/17 18:57 the patient is a 61-year-old female presenting to the emergency room secondary to progressive shortness of breath. I believe this is multifactorial. The patient no doubt has a CHF exacerbation that is likely been made worse by sleep apnea and hypoventilation. The patient also likely has a small starting pneumonia given her fever and chest x-ray reading as well as just the recent worsening over the last day or 2. Blood cultures have been performed. She is receiving a dose of Rocephin and azithromycin. She is already received a breathing treatment. She received a dose of IV Lasix. She is receiving oxygen by mask as she cannot take supplemental oxygen through the nasal cannula. ABG was performed more than an hour after the patient has been on supplemental oxygen and the pH is 7.44. The PaCO2 is 59 still. The PaO2 is 60 and this is on 40% FiO2. The patient does have significant hypokalemia and has just received a first dose of oral potassium. The patient will be admitted for correction of the above problems. She is a high risk patient. Hopefully her director of mobile marketing can see her in the morning. - Results/Orders Results/Orders: Laboratory Tests 06/24/17 06/24/17 06/24/17 18:03 Unknown Unknown WBC 8.8 RBC 3.96 L Hgb 12.1 Hct 36.0 MCV 90.9 MCH 30.5 MCHC 33.6 RDW 13.3 Plt Count 144 MPV 8.7 Absolute Neuts (auto) 7.40 H Absolute Lymphs (auto) 0.80 L Absolute Monos (auto) 0.50 Absolute Eos (auto) 0.10 Absolute Basos (auto) 0.00 Neutrophils % 83.9 H Lymphocytes % 9.1 L Monocytes % 5.7 Eosinophils % 0.9 L Basophils % 0.4 PT INR PTT (SP) D-Dimer, Quantitative Sodium 139 Potassium 2.6 L Chloride 93 L Carbon Dioxide 36 H Anion Gap 12.6 BUN 6 L Creatinine 0.92 BUN/Creatinine Ratio 6.5 L Random Glucose 148 H Serum Osmolality 277.9 Lactic Acid 2.7 H* Calcium 8.3 L Total Bilirubin 0.4 AST 21 ALT 10 Alkaline Phosphatase 74 Creatine Kinase 35 CK-MB (CK-2) 0.8 CK-MB (CK-2) % Not Reportable Troponin I < 0.02 B-Natriuretic Peptide 108.0 H Serum Total Protein 6.6 Albumin 2.9 L Globulin 3.7 H Albumin/Globulin Ratio 0.8 L TSH 1.16 06/24/17 Unknown WBC RBC Hgb Hct MCV MCH MCHC RDW Plt Count MPV Absolute Neuts (auto) Absolute Lymphs (auto) Absolute Monos (auto) Absolute Eos (auto) Absolute Basos (auto) Neutrophils % Lymphocytes % Monocytes % Eosinophils % Basophils % PT 12.3 INR 1.060 PTT (SP) 31.8 D-Dimer, Quantitative < 200 Sodium Potassium Chloride Carbon Dioxide Anion Gap BUN Creatinine BUN/Creatinine Ratio Random Glucose Serum Osmolality Lactic Acid Calcium Total Bilirubin AST ALT Alkaline Phosphatase Creatine Kinase CK-MB (CK-2) CK-MB (CK-2) % Troponin I B-Natriuretic Peptide Serum Total Protein Albumin Globulin Albumin/Globulin Ratio TSH EKG shows normal sinus rhythm at 93 bpm. QRS complexes mildly widened from normal. No acute ST segment changes concerning for immediate ischemia. She does have occasional PVCs. LVH is present. Chest x-ray shows some cardiomegaly and cephalization. She possibly has some mild interstitial infiltrates. No large effusions. Departure - Departure Clinical Impression: Hypokalemia Pneumonia Qualifiers: Pneumonia type: due to unspecified organism Laterality: bilateral Lung location : lower lobe of lung Qualified Code(s): J18.9 - Pneumonia, unspecified organism Acute CHF Qualifiers: Congestive heart failure type: combined Qualified Code(s): I50.41 - Acute combined systolic (congestive) and diastolic (congestive) heart failure Disposition: Admit Patient Referrals: Jael Jimenez MD [Primary Care Provider] - 1-2 Weeks Home Medications: Ambulatory Orders Dabigatran Etexilate Mesylate [Pradaxa] 150 mg PO BID 09/20/14 Lisinopril 10 mg PO DAILY 09/20/14 Sertraline HCl 100 mg PO DAILY 09/20/14 ARIPiprazole [Abilify] 5 mg PO DAILY 08/25/16 Albuterol Inhaler [Ventolin Hfa Inhaler] 2 puff INH Q4H PRN 12/20/16 metFORMIN HCL [Glucophage] 500 mg PO BID 04/24/17 Metoprolol Tartrate 25 mg PO BID 06/24/17 Decision To Admit - Decistion To Admit Decision to Admit Reason: Medical Nature Decision to Admit Date: 06/24/17 Decision to Admit Time: 19:00
--- NOTE | 2017-06-24 19:23 | HP ---
SUPERVISING PHYSICIAN: Gunnar Whittington M.D. CHIEF COMPLAINT: Shortness of breath. HISTORY OF PRESENT ILLNESS: This is a 61 year-old female patient who came to the Emergency Room today due to shortness of breath with some mild chest discomfort. Her symptoms began about a week ago but over the last 2 days her shortness of breath has worsened quite a bit. She has had orthopnea and had a difficult time sleeping unless she was sitting. She has also had a dry hacking cough that was nonproductive. She had some mild swelling in her lower extremities. She has also had a difficult time breathing through her nose. Initially in the Emergency Room her oxygen saturation was 80%. After supplemental oxygen it came up to the upper 80s to low 90s. She also had a temperature when she came in of 100.6. Her white count was normal at 8.8 but she did have a left shift. Her potassium was low in the Emergency Room at 2.6. She was given some oral potassium and refused the IV potassium. Her BNP was slightly elevated at 108. She was given some Lasix. Lactic acid was also done and it was 2.7. Chest x-ray showed an enlarged cardiac silhouette with bilateral interstitial airspace opacities representing pulmonary edema and/or atelectasis. Infectious process is not excluded. She was also given some Rocephin and azithromycin. Due to her difficulty breathing and mild pedal edema as well as her slightly elevated BNP, she was only given a small amount of IV fluids. Her initial cardiac enzymes were negative. I was called for hospital admission. PAST MEDICAL HISTORY: 1. Asthma. 2. Gastroesophageal reflux disease. 3. Paroxysmal atrial fibrillation. She is on Pradaxa. 4. Hypertension. 5. Breast cancer. 6. Diabetes mellitus type 2. PAST SURGICAL HISTORY: 1. section. 2. Cholecystectomy. 3. Left radical mastectomy. 4. Back procedure done [address] Melchor in [place]. CURRENT MEDICATIONS: Per the EMR and awaiting verification. ALLERGIES: NO KNOWN DRUG ALLERGIES. SOCIAL HISTORY: She has never been . She lives in [place]. She has no history of smoking. She denies any ETOH or illicit drug use. REVIEW OF SYSTEMS: GENERAL: Denies fever, fatigue or weight changes. HEENT: Positive for difficulty breathing through her nose with some nose congestion. Negative for sore throat, vision changes or ear pain. RESPIRATORY: Positive for coughing, shortness of breath, wheezing. CARDIOLOGY: Positive for mild chest discomfort. Negative for palpitations or tachycardia. GASTROINTESTINAL: Negative for abdominal pain, nausea, vomiting, diarrhea or constipation. GENITOURINARY: Negative for hematuria, dysuria, polyuria. MUSCULOSKELETAL: Negative for myalgias, arthralgias. NEUROLOGIC: Negative for seizures, headaches or dizziness. PHYSICAL EXAMINATION: VITAL SIGNS: Temperature 99.7, pulse rate 71, blood pressure 110/67, respiratory rate 22. On admission to the Emergency Room, it was 24. O2 sats now are 90% on Venti mask. GENERAL: This is a 61 year-old obese female who is lying in her hospital bed. She is in mild respiratory distress. HEENT: Normocephalic and atraumatic. Pupils are equal and reactive. NECK: Supple without mass. There is no discernible jugular venous distention. RESPIRATORY: She is tachypneic. She has some fine scattered crackles in the upper airways with some expiratory wheezing. Diminished at the bases. CHEST: There is equal rise and fall of the chest with inspiration and expiration. CARDIOVASCULAR: Regular rate and rhythm. GASTROINTESTINAL: Abdomen is soft, nondistended, non-tender. Bowel sounds are positive. EXTREMITIES: No cyanosis or clubbing. There is +1 bilateral pedal edema. NEUROLOGIC: She is awake, alert and oriented times three. LABORATORY: Labs and films are as per the History of Present Illness. ASSESSMENT: 1. Sepsis due to bilateral pneumonia most likely community acquired with hypercapnia with a PCO2 of 59 and hypoxia. Her O2 saturation was 80% on admission with PO2 of 60. Respiratory rate was 24 and she had a fever of 100.6 with lactic acid of 2.7. 2. Pulmonary edema with mildly elevated beta natriuretic peptide at 108. 3. Chest pain most likely secondary to #1 and/or #2. 4. Hypokalemia. 5. Diabetes mellitus type 2. 6. Hypertension. 7. Gastroesophageal reflux disease. 8. Asthma. PLAN: We will admit the patient to the hospital. I have started her on a judicious amount of fluids and we will continue her antibiotics of Rocephin and azithromycin. She will be on Accu-Cheks with sliding scale insulin. I have also started her on a PPI for ulcer prophylaxis. She is on Pradaxa at this time and will have SCDs for DVT prophylaxis. I have ordered BiPAP as needed. I have also checked her magnesium and will give her some more potassium. Pneumonia guidelines have been started. She will have breathing treatments and Mucinex twice daily. She received 40 mg of Lasix in the Emergency Room and we will monitor closely her I's and O's. I believe most likely this is pulmonary in origin, but she does see Dr. Pichardo and if she continues to have chest pain or other issues with her cardiac enzymes, we may consult him tomorrow. Otherwise we will continue to monitor her closely and followup as needed. Dr. Whittington is the collaborating physician available for consultation. [facility][id number] [facility]
[2017-06-24] MEDS ORDERED: ALBUTEROL SULFATE 2.5 MG/3 ML VIAL NEB PRN (20:36)
[2017-06-24] MEDS ORDERED: SODIUM CHLORIDE 0.9% (FLUSH) 10 ML SYG IV PRN (20:36)
[2017-06-24] MEDS ORDERED: GLUCAGON INJ 1 MG VIAL SUBCU PRN (20:43)
[2017-06-24] MEDS ORDERED: DEXTROSE 50% 25 GM/50 ML SYG IV PRN (20:43)
[2017-06-24] MEDS ORDERED: METOPROLOL TARTRATE 25 MG TAB PO SCH (21:00)
[2017-06-24] MEDS ORDERED: ENOXAPARIN SODIUM 40 MG/0.4 ML SYG SUBCU SCH (21:00)
[2017-06-24] MEDS ORDERED: metFORMIN HCL 500 MG TAB PO SCH (21:00)
[2017-06-24] MEDS ORDERED: PANTOPRAZOLE SODIUM IV 40 MG VIAL IV SCH (21:00)
[2017-06-24] MEDS ORDERED: NON-FORMULARY MEDICATION 1 EA MIS (Dabigatran Etexilate Mesylate [Pradaxa] 150 MG) PO SCH (21:00)
[2017-06-24] MEDS ORDERED: DABIGATRAN ETEXILATE 75 MG CAP PO ONE (21:10)
[2017-06-24] MEDS ORDERED: POTASSIUM CHLORIDE 20 MEQ TAB PO ONE (21:16)
[2017-06-24] MEDS: SODIUM CHLORIDE 0.9% (FLUSH) 10 ML SYG IV SCH (21:16)
[2017-06-24] MEDS: guaiFENesin ER TAB 600 MG TAB PO SCH (21:16)
[2017-06-24] MEDS: INSULIN LISPRO 100 UNITS/ML PEN SUBCU SCH (21:23)
[2017-06-24] MEDS: IV SET AND CAP CHANGE INJ INJ SCH (21:26)
[2017-06-24] MEDS: KCL 20MEQ/D5NS 1,000 ML IVS PRN (23:05)
[2017-06-25] MEDS: KCL 20MEQ/D5NS 1,000 ML IVS PRN ×2 (06:05→14:24)
--- NOTE | 2017-06-25 06:33 | RAD ---
EXAM DESCRIPTION: Chest,2 Views CLINICAL HISTORY: Pneumonia COMPARISON: 06/24/2017 FINDINGS: Frontal and lateral views of the chest. The cardiomediastinal silhouette is stable. No pneumothorax or definite pleural effusion. Improved aeration bilaterally with no focal airspace opacity identified. No acute osseous abnormality. Upper abdominal soft tissues are unremarkable. IMPRESSION: 1. Improved aeration bilaterally with no definite focal airspace opacity identified. Electronically signed by: Robin Garcia 06/25/2017 6:32 AM CDT
[2017-06-25] MEDS ORDERED: METOPROLOL TARTRATE 25 MG TAB ONE (07:07)
[2017-06-25] MEDS ORDERED: SERTRALINE HCL 50 MG TAB ONE (07:07)
[2017-06-25] MEDS ORDERED: DABIGATRAN ETEXILATE 75 MG CAP PO ONE (07:07)
[2017-06-25] MEDS: INSULIN LISPRO 100 UNITS/ML PEN SUBCU SCH ×4 (07:21→20:54)
[2017-06-25] MEDS: IPRATROPIUM/ALBUTEROL 3 ML VIAL INH SCH ×4 (08:10→19:43)
--- NOTE | 2017-06-25 08:29 | PCM.CORE ---
Physician DVT/VTE - Prophylaxis Currently: Patient already on anticoagulation therapy - pradaxa - Nurse DVT Assessment & Total Each Risk Factor Represents 3 Points: Medical PT with Hx of DC, CHF, Severe infection/sepsis Each Risk Factor Represents 2 Points: Age 60-74 Each Risk Factor Represents 1 Point: Medical PT at Bed Rest DVT Assessment Score: 6 - 5 or more Very High Risk Treatments: Early Ambulation *, Sequential Compression Device
[2017-06-25] MEDS: LISINOPRIL 10 MG TAB PO SCH (08:40)
[2017-06-25] MEDS: SERTRALINE HCL 50 MG TAB PO SCH (08:40)
[2017-06-25] MEDS: ARIPiprazole 5 MG TAB PO SCH (08:40)
[2017-06-25] MEDS: METOPROLOL TARTRATE 25 MG TAB PO SCH ×2 (08:40→16:34)
[2017-06-25] MEDS: DABIGATRAN ETEXILATE 75 MG CAP PO SCH ×2 (08:40→20:53)
[2017-06-25] MEDS: guaiFENesin ER TAB 600 MG TAB PO SCH ×2 (08:41→20:53)
[2017-06-25] MEDS: metFORMIN HCL 500 MG TAB PO SCH ×2 (08:41→16:34)
[2017-06-25] MEDS: SODIUM CHLORIDE 0.9% (FLUSH) 10 ML SYG IV SCH ×2 (08:42→20:55)
[2017-06-25] MEDS: NYSTATIN POWDER 15GM BTTL TOP SCH ×4 (08:44→20:53)
[2017-06-25] MEDS ORDERED: POTASSIUM CHLORIDE 20 MEQ TAB PO ONE (12:42)
--- NOTE | 2017-06-25 13:16 | PN ---
SUPERVISING PHYSICIAN: Gunnar Whittington MD DATE: 06/25/17 SUBJECTIVE: The patient states she was able to rest last night after being on BiPAP. She notes she has not slept very much within the last several days and is quite sleepy this morning, but is less short of breath. She has been afebrile. OBJECTIVE: VITAL SIGNS: Temperature 98. Pulse 52. Blood pressure 100/57. Respirations 20. Saturation 96% on nasal cannula at 5 liters at rest. I&Os show positive balance of 315 with 1350 in, 1000 out. She has had on bowel movement. Weight is 146.4 kg. CHEST: Lungs are fairly clear, but diminished towards the bases. No rhonchi. HEART: Slightly irregular rate and rhythm without any murmurs, gallops, or rubs. ABDOMEN: Obese, but soft and nontender. Positive bowel sounds. EXTREMITIES: There is trace of edema bilaterally. Pulses distally are strong. Capillary refill is brisk. NEUROLOGIC: Alert and oriented times three. LABORATORY: White count 6,700, hemoglobin 11.5, hematocrit 34.4, platelet count 145,000. Differential without a left shift today. Chemistries show continued elevated carbon dioxide of 38 with potassium up to 3.0 with sodium 143. Glucose 121. Hemoglobin A1c 5.7. Calcium 7.9. Lactic acid has normalized at 1.3. Liver functions are all within normal limits. Troponin less than 0.02. MICROBIOLOGY: Blood cultures remain negative. RADIOLOGY: Repeat chest x-ray this morning per radiologic interpretation of two -view chest shows improved aeration bilaterally with no definite focal airspace opacities identified. ASSESSMENT: 1. Sepsis secondary to bilateral pneumonia, community acquired, with hypercapnia with PCO2 initially on admission of 59 with hypoxemia and a current PCO2 of 33.8, O2 saturations initially 80% on admission with a fever and elevated lactic acid with the patient showing improvement with fluids, antibiotics and noninvasive ventilatory efforts. 2. Pulmonary edema with mildly elevated beta natriuretic peptide at 108. 3. Chest pain secondary to #1 with the patient reporting no chest pains currently. 4. Hypokalemia, improved slightly. 5. Diabetes mellitus, type 2. 6. Hypertension. 7. Gastroesophageal reflux disease. 8. Asthma with exacerbation secondary to #1. PLAN: We will continue with Rocephin and azithromycin for antibiotic coverage. She continues to use BiPAP as needed. We will plan to replace her potassium. We will continue IV fluids but slow the rate down from 80 per hour to 60 per hour preventing further fluid overload as she is showing a positive balance. We will continue aggressive pulmonary hygiene and anticipate discharge in the next 24 to 48 hours. Until then, we will continue to monitor the patient closely and treat appropriately. #[id number] [facility]
[2017-06-25] MEDS ORDERED: SODIUM CHLORIDE 0.9% 250ML 250 ML ONE (14:25)
[2017-06-25] MEDS ORDERED: AZITHROMYCIN IV 500 MG VIAL IVPB ONE (14:25)
[2017-06-25] MEDS: AZITHROMYCIN IV 500 MG in SODIUM CHLORIDE 0.9% 250ML 250 ML IVPB SCH (14:30)
[2017-06-25] MEDS ORDERED: SODIUM CHL 0.9% 50ML MIN-BAG+ 50 ML IVPB ONE (16:33)
[2017-06-25] MEDS ORDERED: cefTRIAXone SODIUM 1 GM VIAL ONE (16:33)
[2017-06-25] MEDS: PANTOPRAZOLE SODIUM TAB 40 MG PO SCH (16:34)
[2017-06-25] MEDS: cefTRIAXone SODIUM 1 GM in SODIUM CHL 0.9% 50ML MIN-BAG+ 50 ML IVPB SCH (17:35)
[2017-06-25] MEDS ORDERED: TEMAZEPAM 15 MG CAP PO ONE (21:55)
[2017-06-26] MEDS: PANTOPRAZOLE SODIUM TAB 40 MG PO SCH (06:02)
[2017-06-26] MEDS: INSULIN LISPRO 100 UNITS/ML PEN SUBCU SCH ×4 (07:06→20:53)
[2017-06-26] MEDS: metFORMIN HCL 500 MG TAB PO SCH ×2 (07:29→16:34)
[2017-06-26] MEDS: METOPROLOL TARTRATE 25 MG TAB PO SCH ×2 (07:29→16:34)
--- NOTE | 2017-06-26 08:17 | RAD ---
EXAM: XR Chest, 2 Views CLINICAL HISTORY: The patient is 61 years old and is Female; pneumonia TECHNIQUE: Frontal and lateral views of the chest. COMPARISON: Prior study from one day earlier. Dated 06/25/2017. FINDINGS: LUNGS: Unremarkable. No consolidation. PLEURAL SPACE: Unremarkable. No pneumothorax. HEART: Unremarkable. No cardiomegaly. MEDIASTINUM: Unremarkable. BONES/JOINTS: No acute abnormality noted. TUBES, LINES AND DEVICES: EKG leads are noted. OTHER FINDINGS: Lateral view is compromised by arm positioning and patient body habitus. IMPRESSION: No acute findings. No change. Electronically signed by: Mario Ojeda MD 06/26/2017 8:15 AM CDT
[2017-06-26] MEDS: DABIGATRAN ETEXILATE 75 MG CAP PO SCH ×2 (08:28→20:52)
[2017-06-26] MEDS: SERTRALINE HCL 50 MG TAB PO SCH (08:28)
[2017-06-26] MEDS: SODIUM CHLORIDE 0.9% (FLUSH) 10 ML SYG IV SCH ×2 (08:28→20:52)
[2017-06-26] MEDS: guaiFENesin ER TAB 600 MG TAB PO SCH ×2 (08:28→20:52)
[2017-06-26] MEDS: ARIPiprazole 5 MG TAB PO SCH (08:28)
[2017-06-26] MEDS: LISINOPRIL 10 MG TAB PO SCH (08:28)
[2017-06-26] MEDS: NYSTATIN POWDER 15GM BTTL TOP SCH ×4 (08:31→20:54)
[2017-06-26] MEDS: IPRATROPIUM/ALBUTEROL 3 ML VIAL INH SCH ×4 (08:45→20:38)
[2017-06-26] MEDS ORDERED: SODIUM CHLORIDE 0.9% 250ML 250 ML ONE (14:32)
[2017-06-26] MEDS ORDERED: AZITHROMYCIN IV 500 MG VIAL IVPB ONE (14:32)
[2017-06-26] MEDS: AZITHROMYCIN IV 500 MG in SODIUM CHLORIDE 0.9% 250ML 250 ML IVPB SCH (14:38)
[2017-06-26] MEDS ORDERED: cefTRIAXone SODIUM 1 GM VIAL ONE (17:11)
[2017-06-26] MEDS ORDERED: SODIUM CHL 0.9% 50ML MIN-BAG+ 50 ML IVPB ONE (17:11)
[2017-06-26] MEDS: cefTRIAXone SODIUM 1 GM in SODIUM CHL 0.9% 50ML MIN-BAG+ 50 ML IVPB SCH (17:31)
--- NOTE | 2017-06-26 17:54 | PN ---
SUPERVISING PHYSICIAN: Gunnar Whittington MD DATE: 06/26/17 SUBJECTIVE: The patient feels that she is much better today. She had a restless night with some Restoril and BiPAP. She has had no fever, nausea or vomiting or chest pain. OBJECTIVE: VITAL SIGNS: Temperature 97.9. Pulse 78. Blood pressure 111/70. Respirations 17. Saturation 95% on nasal cannula at 3 liters. I&Os show a negative balance of 1320 with 330 in, 1650 out. She has had one bowel movement. Weight is 148.3 kg. CHEST: Lungs are clear today but diminished towards the bases. No rhonchi, wheezing or rales. HEART: Regular rate and rhythm. ABDOMEN: Obese, but soft and nontender. Positive bowel sounds. EXTREMITIES: There is no cyanosis, clubbing, or edema, just a trace of pedal edema bilaterally. . NEUROLOGIC: Alert and oriented times three. LABORATORY: CBC today shows 7,100 white count, hemoglobin 10.7, hematocrit 32.6 , platelet count 136,000. Differential shows to be within normal limits. Chemistries show improving carbon dioxide down to 35 with sodium and potassium both normal. BUN 9, creatinine 0.72, blood sugars between 109 and 195. Calcium 7.6, albumin low at 2.6. MICROBIOLOGY: Blood cultures remain negative at 24 hours. No sputum cultures collected as of yet. RADIOLOGY: Chest x-ray 2-view this morning per radiologic interpretation shows no acute findings. No change. . ASSESSMENT: 1. Sepsis secondary to bilateral pneumonia, community acquired, with patient being hypercapnic with PCO2 initially on admission of 59 with hypoxemia and a current PCO2 of 35. O2 saturation showing improvement. She has been afebrile. Lactic acid normalized after initiation of fluids and antibiotics and continued noninvasive ventilatory efforts. . 2. Pulmonary edema with mildly elevated beta natriuretic peptide at 108 with no formal diagnosis of congestive heart failure. 3. Chest pain secondary to #1 with no reported chest pain since admission. . 4. Hypokalemia, improved.. 5. Diabetes mellitus, type 2, stable. 6. Hypertension. 7. Gastroesophageal reflux disease. 8. Asthma with exacerbation secondary to #1. PLAN: We will continue antibiotics today with Rocephin and azithromycin with anticipation of possibly discharging tomorrow or Wednesday. She will continue to use BiPAP at need. Will repeat labs in the morning to include BNP as her CBC has shown to be stable. Will hold off on repeat x-ray. At this point, she may saline lock. Again, hopefully discharging in the next 24 to 48 hours. Until then, we will continue to monitor the patient closely and treat appropriately. [facility][id number] [facility]
[2017-06-27] MEDS: PANTOPRAZOLE SODIUM TAB 40 MG PO SCH (06:01)
[2017-06-27] MEDS: metFORMIN HCL 500 MG TAB PO SCH ×2 (07:18→17:27)
[2017-06-27] MEDS: INSULIN LISPRO 100 UNITS/ML PEN SUBCU SCH ×4 (07:18→21:07)
[2017-06-27] MEDS: METOPROLOL TARTRATE 25 MG TAB PO SCH ×2 (07:18→17:27)
[2017-06-27] MEDS: IPRATROPIUM/ALBUTEROL 3 ML VIAL INH SCH ×4 (08:10→20:30)
[2017-06-27] MEDS: DABIGATRAN ETEXILATE 75 MG CAP PO SCH ×2 (09:37→20:48)
[2017-06-27] MEDS: LISINOPRIL 10 MG TAB PO SCH (09:38)
[2017-06-27] MEDS: guaiFENesin ER TAB 600 MG TAB PO SCH ×2 (09:38→20:48)
[2017-06-27] MEDS: ARIPiprazole 5 MG TAB PO SCH (09:38)
[2017-06-27] MEDS: SODIUM CHLORIDE 0.9% (FLUSH) 10 ML SYG IV SCH ×2 (09:38→20:48)
[2017-06-27] MEDS: SERTRALINE HCL 50 MG TAB PO SCH (09:38)
[2017-06-27] MEDS ORDERED: ACETAMINOPHEN 325 MG TAB ONE (10:55)
[2017-06-27] MEDS: ACETAMINOPHEN 325 MG TAB PO PRN ×2 (11:11→21:08)
[2017-06-27] MEDS: NYSTATIN POWDER 15GM BTTL TOP SCH ×4 (13:00→20:50)
--- NOTE | 2017-06-27 13:05 | PN ---
SUPERVISING PHYSICIAN: Gunnar Whittington MD DATE: 06/27/17 SUBJECTIVE: The patient is sitting in the bedside chair. She has been running a low grade fever this morning with a temperature of 100.6. She refused to wear her BiPAP last night. She continues to show improvement in her C02 decreasing but continues to require supplemental oxygenation showing desaturation on room air. She h as had no nausea, vomiting, diarrhea. No chest pains. OBJECTIVE: VITAL SIGNS: [id number]. Pulse 94. Blood pressure 144/68. Saturation 96% on 3 liters and 72% room air at rest. I&Os show a negative balance of 2260 with 1490 in, 3750 out. Weight is 147.9 kg. CHEST: Lung sounds are equal bilaterally, just diminished towards the bases. No wheezing or rhonchi heard. HEART: Regular rate and rhythm. ABDOMEN: Obese, but soft and nontender. Positive bowel sounds. EXTREMITIES: There is no cyanosis, clubbing, or edema this morning. NEUROLOGIC: Alert and oriented times three. LABORATORY: Chemistries show normal sodium, normal potassium but C02 down initially from admission to 38 down to 34. BUN 9, creatinine 0.82. Blood sugars between 120 and 153. Ambulation Study: Sp02 on Room Air 72% with patient unable to ambualte more than 10 feet in the room due to low saturations. She recovered only to 87% at rest on 3 liter per minute on a Nasal Canula and with increase to 4 liter per minute only to 91%. MICROBIOLOGY: Blood cultures remain negative after 48 hours. RADIOLOGY: No repeat radiographically studies today. ASSESSMENT: 1. Sepsis secondary to bilateral pneumonia, community acquired, with chronic hypercapnia showing some improvement since admission, remaining hypoxic on room air requiring supplemental 02 and further assessment prior to discharge with patient showing some improvement with fluid restriction and aggressive pulmonary hygiene with parenteral antibiotics to include Rocephin and azithromycin. .2. Pulmonary edema on admission with a mildly elevated BNP at 108 without formal diagnosis of congestive heart failure. Oxygen dependent and needing additional workup after discharge to include an echocardiogram. 3. Chest pain secondary to #1 with no reported chest pain since admission and cardiac workup being negative. 4. Hypokalemia, improved.. 5. Diabetes mellitus, type 2, stable. 6. Hypertension. 7. Gastroesophageal reflux disease. 8. Asthma with exacerbation secondary to #1 and oxygen dependent. 9. Morbid Obesity with a body mass index of 48 PLAN: We will continue again with current plan at this time with antibiotics of Rocephin and azithromycin. She will also continue with aggressive pulmonary hygiene and chest percussion therapy. Will encourage BiPAP at night which she has been refusing. We will need to do a physical therapy evaluation in the morning as well arrange for home 02 with anticipating discharge tomorrow. . Her initial ambulation study showed significant desaturation on room air with oxygen saturations at 72% with limitation of ambulation due to the low to saturations. After, discussing her need for home oxygen including a home concentrator and portable she wants to go with [facility]. She will also need home health services at discharge. Until then, we will continue to monitor the patient closely and treat appropriately. #[id number] [facility]
[2017-06-27] MEDS ORDERED: SODIUM CHLORIDE 0.9% 250ML 250 ML ONE (15:18)
[2017-06-27] MEDS ORDERED: AZITHROMYCIN IV 500 MG VIAL IVPB ONE (15:19)
[2017-06-27] MEDS: AZITHROMYCIN IV 500 MG in SODIUM CHLORIDE 0.9% 250ML 250 ML IVPB SCH (15:36)
[2017-06-27] MEDS ORDERED: SODIUM CHL 0.9% 50ML MIN-BAG+ 50 ML IVPB ONE (18:04)
[2017-06-27] MEDS ORDERED: cefTRIAXone SODIUM 1 GM VIAL ONE (18:04)
[2017-06-27] MEDS: cefTRIAXone SODIUM 1 GM in SODIUM CHL 0.9% 50ML MIN-BAG+ 50 ML IVPB SCH (18:09)
[2017-06-27] MEDS: IV SET AND CAP CHANGE INJ INJ SCH (20:50)
[2017-06-28 02:50] VITALS: TEMP 98.1
[2017-06-28] MEDS: ACETAMINOPHEN 325 MG TAB PO PRN (04:53)
[2017-06-28] MEDS: PANTOPRAZOLE SODIUM TAB 40 MG PO SCH (06:44)
[2017-06-28] MEDS: INSULIN LISPRO 100 UNITS/ML PEN SUBCU SCH ×2 (07:07→11:30)
[2017-06-28] MEDS: IPRATROPIUM/ALBUTEROL 3 ML VIAL INH SCH ×2 (07:26→11:28)
[2017-06-28] MEDS: DABIGATRAN ETEXILATE 75 MG CAP PO SCH (08:14)
[2017-06-28] MEDS: guaiFENesin ER TAB 600 MG TAB PO SCH (08:14)
[2017-06-28] MEDS: METOPROLOL TARTRATE 25 MG TAB PO SCH (08:15)
[2017-06-28] MEDS: metFORMIN HCL 500 MG TAB PO SCH (08:15)
[2017-06-28] MEDS: ARIPiprazole 5 MG TAB PO SCH (08:15)
[2017-06-28] MEDS: SERTRALINE HCL 50 MG TAB PO SCH (08:15)
[2017-06-28] MEDS: SODIUM CHLORIDE 0.9% (FLUSH) 10 ML SYG IV SCH (08:29)
[2017-06-28] MEDS: LISINOPRIL 10 MG TAB PO SCH (08:31)
[2017-06-28 10:19] VITALS: BP 101/64
[2017-06-28] MEDS: NYSTATIN POWDER 15GM BTTL TOP SCH (11:00)
[2017-06-28] MEDS ORDERED: AZITHROMYCIN 250 MG TAB PO ONE ×3 (11:25→18:00)
[2017-06-28 11:31] VITALS: O2SAT 98
--- NOTE | 2017-06-28 21:34 | DS ---
SUPERVISING PHYSICIAN: Ronny Baires M.D. DISCHARGE DIAGNOSIS: 1. Sepsis secondary to bilateral pneumonia, community acquired, with the patient being chronically hypercapnic. 2. Pulmonary edema on admission with a mildly elevated BNP at 108 with no formal diagnosis of congestive heart failure, oxygen dependent needing additional workup after discharge to include an echocardiogram. 3. Chest pain secondary to #1 with no reported chest pain since admission and cardiac workup being negative. 4. Hypokalemia, improved.. 5. Diabetes mellitus, type 2, stable. 6. Hypertension. 7. Gastroesophageal reflux disease. 8. Asthma with exacerbation secondary to #1 and oxygen dependent. 9. Morbid Obesity with a body mass index of 48 REASON FOR HOSPITALIZATION: Ms. Delgado is a 61 year-old female patient who presented to the Emergency Room on 06/24/17 due to shortness of breath with some mild chest discomfort. Her symptoms began about a week previous and over the last 2 days prior to admission her shortness of breath had worsened significantly. She has had some orthopnea and had a difficult time sleeping unless she was sitting. She has also had a dry hacking cough that was nonproductive. She had some mild swelling in her lower extremities as well and has had difficulty breathing at times through her nose. Initially in the Emergency Room her oxygen saturation were noted to be 80% on room air. After supplemental oxygen it improved up to the mid 80s to low 90s. She also had a temperature when she came in of 100.6 with a white count of 8,800 and a left shift. Her BNP was slightly elevated at 108. At that point she was given Lasix after chest x-ray was completed showing an enlarged cardiac silhouette with bilateral interstitial airspace opacities representing pulmonary edema and/ or atelectasis. The patient was then started on antibiotics to include Rocephin and azithromycin along with fluids with concerns for community acquired pneumonia. She was admitted in stable condition. LABORATORY STUDIES: Initial white count was 8,800, at discharge white count was 7,100. Hemoglobin was stable at 10.7, hematocrit 32.6, platelet count 136, 000. Differential did show a left shift initially on admission but it resolved after initiation of antibiotics and prior to discharge. Coagulation studies showed normal PT and PTT. Blood gas analysis revealed a pH of 7.44 with PCO2 of 59, PO2 of 60, satting 93% on nasal cannula at 2 liters at rest. Chemistries showed initially a low potassium at 2.6 with an elevated carbon dioxide at 36, BUN 6, creatinine 0.92. Prior to discharge potassium had been replaced and was normalized to 3.6. Carbon dioxide had decreased down to 36. BUN was stable at 11 and creatinine 0.71. Blood sugars were stable between 102 and 195. Magnesium was normal at 2.1, initially on admission it was 1.9. Urinalysis showed just a trace of intact blood, otherwise within normal limits. MICROBIOLOGY: Blood cultures remained negative after 3 days. No sputum culture was ever collected. RADIOLOGY: Initially in the Emergency Department she had a chest x-ray per radiology interpretation of a 2 view chest that showed enlarged cardiac silhouette with bilateral interstitial airspace opacities representing pulmonary edema and/or atelectasis with infectious process not excluded. Followup chest x-ray was completed with the last one being on 06/26/17 and per radiology interpretation showed, compared to previous study on 06/25/17, no acute findings and no change. HOSPITAL COURSE: Ms. Delgado was admitted as noted above for community acquired pneumonia and acute onset of congestive heart failure with an elevated BNP with lower extremity edema. She was given a low dose of Lasix initially and put on fluid restrictions which resulted in good diuresis, and as well initiation of parenteral antibiotics to include Rocephin and azithromycin. The patient showed good clinical response, however she remained significantly hypoxic on room air and was requiring supplemental oxygen to maintain low O2 saturations. She was up and ambulatory with a walker. It was felt that she had improved clinically well enough to continue with outpatient treatment plan. PLAN: Ms. Delgado was discharged on 06/28/17 with instructions to followup with Dr. Jimenez at [facility] in the next week. She was already on an Jermain inhibitor and metoprolol given her elevated BNP. Will certainly need an echocardiogram at some point to further evaluate her cardiac functionality. She will continue with all of her medications as previous. She was instructed to follow a strict fluid restriction of less than 1800 mL per day. She was encouraged to stop drinking Dr. Peppers to help control her blood sugars better. She is to return to the hospital should she have any concerning symptoms and new prescriptions included: 1. Albuterol nebulizers 2.5 mg every 4 hours as needed, #30. 2. Cefdinir continued antibiotics 300 mg twice daily for 10 days. 3. Lasix 20 mg daily, #30. 4. Guaifenesin 600 mg twice a day. 5. Potassium chloride Micro-K 10 mEq daily, #30. Diet at discharge was diabetic diet, low salt. Activity is increase as tolerated. Condition at discharge was stable and improved. #[id number] [facility]
== END 2017-06-28 12:13 | disposition home or self-care (01) | DRG 871 ==
LOC: ER 17:13 → MS 19:22 → OBSVTOIN 19:22
PROVIDERS: ADMIT Nurse Practitioner Acute Care; ATTEND Nurse Practitioner Family
DX: A41.9 Sepsis, unspecified organism (principal); J18.9 Pneumonia, unspecified organism; J45.901 Unspecified asthma with (acute) exacerbation; Z68.42 Body mass index [BMI] 45.0-49.9, adult; J81.1 Chronic pulmonary edema; I48.0 Paroxysmal atrial fibrillation; E87.6 Hypokalemia; I10 Essential (primary) hypertension; E11.9 Type 2 diabetes mellitus without complications; E66.01 Morbid (severe) obesity due to excess calories; R09.02 Hypoxemia; R07.9 Chest pain, unspecified; K21.9 Gastro-esophageal reflux disease without esophagitis; Z85.3 Personal history of malignant neoplasm of breast; Z79.01 Long term (current) use of anticoagulants; Z79.84 Long term (current) use of oral hypoglycemic drugs; Z79.899 Other long term (current) drug therapy; Z87.891 Personal history of nicotine dependence; G47.30 Sleep apnea, unspecified; Z99.81 Dependence on supplemental oxygen

== ENCOUNTER → 2017-08-18 | Outpatient (CLI) | payer MEDICARE, MEDICAID ==
--- NOTE | 2017-08-18 16:32 | RAD ---
EXAM DESCRIPTION: Shoulder,Right 2 or More Views CLINICAL HISTORY: PAIN IN UNSPECIFIED SHOULDER COMPARISON: None. TECHNIQUE: Internal and external right FINDINGS: Degenerative changes are observed in the glenohumeral joint. The acromioclavicular joint is normal. No evidence for fracture or dislocation is seen. IMPRESSION: Glenohumeral joint degenerative arthritis is detected. Electronically signed by: Elias Bolanos MD 08/18/2017 4:30 PM CDT
--- NOTE | 2017-08-18 16:32 | RAD ---
EXAM DESCRIPTION: Shoulder,Left 2 or More Views CLINICAL HISTORY: PAIN IN UNSPECIFIED SHOULDER COMPARISON: None. TECHNIQUE: Internal and external left FINDINGS: I see no bone joint or soft tissue abnormality. IMPRESSION: Normal left shoulder. Electronically signed by: Elias Bolanos MD 08/18/2017 4:31 PM CDT
== END ==
LOC: RAD 14:47
DX: M19.011 Primary osteoarthritis, right shoulder (principal); M25.519 Pain in unspecified shoulder

== ENCOUNTER → 2017-11-02 | Outpatient (CLI) | payer MEDICARE, MEDICAID | LOC: LAB.O 09:54 | PROVIDERS: ATTEND Family Medicine | DX: I10 Essential (primary) hypertension (principal) ==

== ENCOUNTER 2018-05-05 08:49 | Emergency (ER) | payer MEDICARE, MEDICAID ==
[2018-05-05 09:04] VITALS: TEMP 98.5; O2SAT 92
[2018-05-05] MEDS ORDERED: LIDOCAINE 1% 10 ML VIAL INJ ONE (09:07)
--- NOTE | 2018-05-05 09:12 | ED.PDOC ---
History of Present Illness - General Chief Complaint: Dental/Mouth Stated Complaint: swelling to left jaw Time Seen by Provider: 05/05/18 09:07 Source: patient Exam Limitations: no limitations - History of Present Illness Initial Comments: patient comes in with swelling and pain to the left jaw. Her tooth is been bothering her intermittently for years but the past 2 days has gotten much worse. Patient notes she has bad teeth but has not yet been to dentist. She's been taking ibuprofen [id number] for pain and took one dose this morning. She's had no fever, chills, nausea or vomiting. She is a past medical history of hypertension, asthma, and diabetes. She has no known drug allergies. Timing/Duration: other - 2 days Severity: moderate EENT Location: dental Prearrival Treatment: over the counter meds, prescription meds - ultram not helping Improving Factors: medication - ibuprofen does help Worsening Factors: nothing Associated Symptoms: denies symptoms Allergies/Adverse Reactions: Allergies NO KNOWN ALLERGY Allergy (Verified 06/25/17 09:09) Home Medications: Ambulatory Orders Dabigatran Etexilate Mesylate [Pradaxa] 150 mg PO BID 09/20/14 Lisinopril 10 mg PO DAILY 09/20/14 Sertraline HCl 100 mg PO DAILY 09/20/14 ARIPiprazole [Abilify] 5 mg PO DAILY 08/25/16 Albuterol Inhaler [Ventolin Hfa Inhaler] 2 puff INH Q4H PRN 12/20/16 metFORMIN HCL [Glucophage] 500 mg PO BID 04/24/17 Metoprolol Tartrate 25 mg PO BID 06/24/17 Albuterol Sulfate Nebs [Proventil Nebs] 2.5 mg INH Q4HR PRN #30 vial 06/28/17 Cefdinir [Omnicef] 300 mg PO BID #20 cap 06/28/17 Furosemide [Lasix] 20 mg PO DAILY #30 tab 06/28/17 Potassium Chloride Tab [Micro-K] 10 meq PO DAILY #30 tab 06/28/17 guaiFENesin ER TAB [Mucinex Tab] 600 mg PO BID tab 06/28/17 Cephalexin 500 mg PO TID #30 cap 09/22/17 Clindamycin HCl 300 mg PO TID #21 cap 05/05/18 Review of Systems - Review of Systems Constitutional: States: no symptoms reported. Denies: chills, fever EENTM: States: see HPI, mouth pain, mouth swelling Respiratory: States: no symptoms reported. Denies: cough, short of breath Cardiology: States: no symptoms reported. Denies: chest pain, edema, palpitations Gastrointestinal/Abdominal: States: no symptoms reported. Denies: abdominal pain, constipation, diarrhea Past Medical History (General) - Patient Medical History Hx Seizures: No Hx Stroke: No Hx Dementia: No Hx Asthma: Yes Hx of COPD: No Hx Cardiac Disorders: Yes Hx Congestive Heart Failure: Yes Hx Pacemaker: No Hx Hypertension: Yes Hx Thyroid Disease: No Hx Diabetes: Yes Hx Gastroesophageal Reflux: Yes Hx Renal Disease: No Hx Cancer: Yes - Breast Hx of HIV: No Hx Hepatitis C: No Hx MRSA: No MRSA Source:: Wound Surgical History: cholecystectomy - Vaccination History Hx Tetanus, Diphtheria Vaccination: - unknown Hx Influenza Vaccination: Yes Hx Pneumococcal Vaccination: No - Social History Hx Tobacco Use: No Hx Chewing Tobacco Use: No Hx Alcohol Use: No Hx Substance Use: No Hx Substance Use Treatment: No Hx Depression: No Hx Physical Abuse: No Hx Emotional Abuse: No Hx Suspected Abuse: No - Female History Patient : No Family Medical History - Family History Mother Family History: Unknown Living Status: Cause of : had impaction in colon Hx Family Hypertension: Yes Hx Cardiac Disease: Yes - parents Hx Family Diabetes: Yes - parents Physical Exam - Physical Exam General Appearance: Alert, Comfortable, No apparent distress Eye Exam: bilateral normal Ear Exam: bilateral ear: TM normal Nasal Exam: normal inspection Throat Exam: other - broken teeth with cavitary lesions no fluctulance swelling of L cheek with no calor mild erythema Neck: non-tender, full range of motion, normal inspection Cardiovascular/Respiratory: regular rate, rhythm, no M/R/G, normal breath sounds, no respiratory distress Abdominal Exam: non-tender Neurologic: alert, oriented x 3 Departure - Departure Clinical Impression: Acute pain of mouth, Dental neglect, Chronic dental infection Disposition: Discharge to Home or Self Care Condition: Good Departure Forms: ED Discharge - Pt. Copy, Patient Portal Self Enrollment Referrals: Lenin Nuñez MD [Primary Care Provider] - 1-2 Weeks Prescriptions: Clindamycin HCl 300 mg PO TID #21 cap Home Medications: Ambulatory Orders Dabigatran Etexilate Mesylate [Pradaxa] 150 mg PO BID 09/20/14 Lisinopril 10 mg PO DAILY 09/20/14 Sertraline HCl 100 mg PO DAILY 09/20/14 ARIPiprazole [Abilify] 5 mg PO DAILY 08/25/16 Albuterol Inhaler [Ventolin Hfa Inhaler] 2 puff INH Q4H PRN 12/20/16 metFORMIN HCL [Glucophage] 500 mg PO BID 04/24/17 Metoprolol Tartrate 25 mg PO BID 06/24/17 Albuterol Sulfate Nebs [Proventil Nebs] 2.5 mg INH Q4HR PRN #30 vial 06/28/17 Cefdinir [Omnicef] 300 mg PO BID #20 cap 06/28/17 Furosemide [Lasix] 20 mg PO DAILY #30 tab 06/28/17 Potassium Chloride Tab [Micro-K] 10 meq PO DAILY #30 tab 06/28/17 guaiFENesin ER TAB [Mucinex Tab] 600 mg PO BID tab 06/28/17 Cephalexin 500 mg PO TID #30 cap 09/22/17 Clindamycin HCl 300 mg PO TID #21 cap 05/05/18 Additional Instructions: follow up with dentist. Return to ER for temp >100.5, severe increase in symptoms
[2018-05-05] MEDS: cefTRIAXone SODIUM 1 GM VIAL IM ONE (09:19)
[2018-05-05 09:38] VITALS: BP 106/78
== END 2018-05-05 09:38 | disposition home or self-care (01) ==
LOC: ER 08:49
DX: K04.7 Periapical abscess without sinus (principal); K02.9 Dental caries, unspecified; S02.5XXA Fracture of tooth (traumatic), initial encounter for closed fracture; I11.0 Hypertensive heart disease with heart failure; J45.909 Unspecified asthma, uncomplicated; E11.9 Type 2 diabetes mellitus without complications; I50.9 Heart failure, unspecified; K21.9 Gastro-esophageal reflux disease without esophagitis; Z79.84 Long term (current) use of oral hypoglycemic drugs; Z79.899 Other long term (current) drug therapy; Z85.3 Personal history of malignant neoplasm of breast; X58.XXXA Exposure to other specified factors, initial encounter; Y92.9 Unspecified place or not applicable

== ENCOUNTER → 2018-06-13 | Outpatient (CLI) | payer MEDICARE, MEDICAID | LOC: YCFC.O 15:01 | PROVIDERS: ATTEND Family Medicine | DX: E11.9 Type 2 diabetes mellitus without complications (principal); I10 Essential (primary) hypertension ==

== ENCOUNTER → 2018-07-25 | Outpatient (CLI) | payer MEDICARE, MEDICAID ==
--- NOTE | 2018-07-26 19:25 | MRI ---
EXAM DESCRIPTION: Lumbar Spine w/o Contrast CLINICAL HISTORY: RADICULOPATHY LUMBAR REGION COMPARISON: March 29, 2017 TECHNIQUE: Multiplanar, multisequence MRI of the lumbar spine was performed without contrast. FINDINGS: Lumbar vertebral body heights are maintained. Straightening of the normal lumbar lordosis. Moderate Modic type II endplate signal changes asymmetric towards the right at L4-5 with mild Modic type II endplate signal changes at L5-S1. Conus medullaris terminates at L1-L2. Visualized intra-abdominal retroperitoneal structures are unremarkable. L1-2 Disc desiccation and mild loss of disc space height. Left paracentral disc bulging extends 4 mm beyond the endplate margin indenting the ventral aspect of the thecal sac. Mild facet hypertrophic and degenerative changes are seen. Mild spinal canal stenosis and moderate left lateral recess encroachment is seen without foraminal encroachment. L2-3 Disc desiccation and moderate loss of disc space height with 2 to 3 mm broad-based disc bulge eccentric towards the left. Left paracentral annular tear with disc protrusion on image 18 of series 601 contributes to moderate left lateral recess encroachment. Mild spinal canal stenosis. Left foraminal to extraforaminal disc osteophytic ridging results in moderate left foraminal and mild extraforaminal encroachment of the exiting L2 nerve root similar to previous. L3-4 Disc desiccation and mild loss of disc space height with 2 to 3 mm broad-based annular disc bulge. Mild facet arthrosis. Mild spinal canal stenosis and mild bilateral foraminal encroachment is stable. L4-5 Disc desiccation and severe loss of disc space height. Posterior circumferential ridging disc osteophyte complex eccentric towards the right with mild facet arthrosis results in stable mild spinal canal stenosis. Moderate bilateral foraminal encroachment is again seen. L5-S1 Disc desiccation and moderate loss of disc space height. Broad-based annular disc bulge and trace retrolisthesis is seen. No spinal canal stenosis. Far lateral disc osteophytic ridging results in moderate bilateral foraminal and extraforaminal encroachment of the exiting L5 nerve root similar to previous. IMPRESSION: Moderate to severe spondylitic changes of the lumbar spine are again seen with at least mild spinal canal stenosis from L1 through L5. A new left paracentral annular tear and disc protrusion with increased T2 signal at L2-3 encroaches on the descending left L3 nerve root in the lateral recess. Multilevel foraminal encroachment is seen as described level by level above. Straightening of the normal lumbar lordosis could be secondary to patient positioning or muscle spasm. Electronically signed by: Misael Alexandra MD 07/26/2018 7:23 PM CDT
== END ==
LOC: MRI 13:17
PROVIDERS: ATTEND Family Medicine
DX: M47.26 Other spondylosis with radiculopathy, lumbar region (principal); M51.16 Intervertebral disc disorders with radiculopathy, lumbar region

== ENCOUNTER 2018-11-16 22:02 | Emergency (ER) | payer OTHER, MEDICAID ==
[2018-11-16 22:23] VITALS: TEMP 97.3
[2018-11-16] MEDS ORDERED: ALUM & MAG HYDROX-SIMETHICONE 30 ML, LIDOCAINE VISCOUS 2% 15 ML PO ONE ×2 (22:58)
[2018-11-16] MEDS ORDERED: LIDOCAINE HCL 2% (MOUTH-THROAT) 15 ML UD ONE (22:59)
[2018-11-16] MEDS ORDERED: ALUM & MAG HYDROX-SIMETHICONE 30 ML UD ONE (22:59)
[2018-11-16] MEDS ORDERED: POTASSIUM CHLORIDE ELIXIR 20 MEQ/15 ML UD PO ONE (23:13)
--- NOTE | 2018-11-16 23:15 | RAD ---
EXAM: Abdomen Series CLINICAL INDICATION: Abdominal pain COMPARISON: There is no previous study for comparison. FINDINGS: A single view of the chest reveals the heart size is normal. The pulmonary vessels are unremarkable. The lungs are clear. There is no evidence of free air under the hemidiaphragms. 5views of the abdomen reveal multiple mildly dilated gas-filled loops of small bowel. There is no free air. No pathologic calcifications are seen. IMPRESSION: Dilated loops of small bowel raising concern for small bowel obstruction. CT scan of the abdomen and pelvis is recommended. Electronically signed by: César Sanchez MD 11/16/2018 11:13 PM CDT
--- NOTE | 2018-11-17 00:23 | ED.PDOC ---
History of Present Illness - General Chief Complaint: Abdominal Pain Stated Complaint: pain all over abd Time Seen by Provider: 11/16/18 22:03 Source: patient Exam Limitations: no limitations - History of Present Illness Initial Comments: the patient is a 63-year-old female presenting to the emergency room secondary to abdominal pain for the better part of last week. She reports that it started proximally 7 days ago with abrupt onset of nausea vomiting diarrhea. She had been vomiting for about 24 hours only , but has since had significant nausea. She has not been throwing up since that time. She has been having some intermittent diarrhea. The abdominal pain has been getting worse over the last 24 hours however she has been having bowel movements. No blood in the stool or vomit. No fever. She has had her gallbladder removed in the past. Abdominal pain on exam does appear to be in the mid abdominal area. No history of any pancreatitis. No history of any recent trauma. The patient is morbidly obese.no definite rebound or peritoneal signs. No definite abnormal masses palpable Timing/Duration: 1 week Severity: moderate Improving Factors: nothing Worsening Factors: eating Associated Symptoms: loss of appetite, malaise, nausea/vomiting Allergies/Adverse Reactions: Allergies NO KNOWN ALLERGY Allergy (Verified 06/25/17 09:09) Home Medications: Ambulatory Orders Lisinopril 10 mg PO DAILY 09/20/14 Sertraline HCl 100 mg PO DAILY 09/20/14 ARIPiprazole [Abilify] 5 mg PO DAILY 08/25/16 Albuterol Inhaler [Ventolin Hfa Inhaler] 2 puff INH Q4H PRN 12/20/16 metFORMIN HCL [Glucophage] 500 mg PO BID 04/24/17 Metoprolol Tartrate 25 mg PO BID 06/24/17 Albuterol Sulfate Nebs [Proventil Nebs] 2.5 mg INH Q4HR PRN #30 vial 06/28/17 Furosemide [Lasix] 20 mg PO DAILY #30 tab 06/28/17 Celecoxib 200 mg DAILY 11/16/18 Review of Systems - Review of Systems Constitutional: States: malaise EENTM: States: no symptoms reported Respiratory: States: no symptoms reported Cardiology: States: no symptoms reported Gastrointestinal/Abdominal: States: abdominal pain, diarrhea, nausea, vomiting Genitourinary: States: no symptoms reported Musculoskeletal: States: see HPI - chronic low back pain issues but no acute musculoskeletal pain Skin: States: no symptoms reported Neurological: States: no symptoms reported Endocrine: States: no symptoms reported All other Systems: No Change from Baseline Past Medical History (General) - Patient Medical History Hx Seizures: No Hx Stroke: No Hx Dementia: No Hx Asthma: Yes Hx of COPD: No Hx Cardiac Disorders: Yes Hx Congestive Heart Failure: Yes Hx Pacemaker: No Hx Hypertension: Yes Hx Thyroid Disease: No Hx Diabetes: Yes Hx Gastroesophageal Reflux: Yes Hx Renal Disease: No Hx Cancer: Yes - Breast Hx of HIV: No Hx Hepatitis C: No Hx MRSA: No MRSA Source:: Wound - Vaccination History Hx Tetanus, Diphtheria Vaccination: Yes Hx Influenza Vaccination: Yes Hx Pneumococcal Vaccination: Yes - Social History Hx Tobacco Use: No Hx Chewing Tobacco Use: No Hx Alcohol Use: No Hx Substance Use: No Hx Substance Use Treatment: No Hx Depression: No Hx Physical Abuse: No Hx Emotional Abuse: No Hx Suspected Abuse: No - Female History Patient : No Family Medical History - Family History Mother Family History: Unknown Living Status: Cause of : had impaction in colon Hx Family Hypertension: Yes Hx Cardiac Disease: Yes - parents Hx Family Diabetes: Yes - parents Physical Exam - Physical Exam General Appearance: Alert, No apparent distress, Unkempt Eye Exam: bilateral normal Ears, Nose, Throat: hearing grossly normal, normal pharynx Neck: non-tender, supple Respiratory: lungs clear, normal breath sounds, no respiratory distress, no accessory muscle use Cardiovascular/Chest: normal peripheral pulses, no edema, other - borderline tachycardia but regular rate Peripheral Pulses: radial,right: 2+, radial,left: 2+, dorsalis pedis,right: 2+, dorsalis pedis,left: 2+ Gastrointestinal/Abdominal: other - see history of present illness Rectal Exam: deferred Back Exam: no CVA tenderness, no vertebral tenderness Extremity: non-tender, normal inspection, no pedal edema, normal capillary refill 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, alert, normal mood/affect, oriented x 3 Skin Exam: normal color Comments: Vital Signs - 24 hr 11/16/18 11/16/18 11/17/18 22:15 23:02 00:00 Temperature 97.3 F L Pulse Rate [ 107 H 51 L 86 left] Respiratory 18 20 20 Rate Blood Pressure 130/78 134/72 136/84 [left] O2 Sat by Pulse 94 L 95 96 Oximetry 11/17/18 01:00 Temperature Pulse Rate [ 52 L left] Respiratory 18 Rate Blood Pressure 124/64 [left] O2 Sat by Pulse 94 L Oximetry Progress - Progress Progress: 11/17/18 02:11 the patient is a 63-year-old female presenting to the emergency room secondary to a weeks worth of symptoms of primarily nausea and abdominal discomfort. Symptoms have significantly worsened today progressing back towards vomiting and increased abdominal pain. She has not passed gas in the last 6 or 8 hours but was having some diarrhea prior to that. No definite fever. CT scan is consistent with a developing small bowel obstruction which does fit her picture clinically. An NG tube was placed for decompression. She is receiving IV fluids for mild dehydration along with some IV potassium for low potassium level. She is receiving some nausea medications as well. A blood culture has been performed and an acute hepatitis panel is being sent off. She has been placed on Zosyn empirically, primarily for treatment of the enteritis and terminal ileitis. The patient does have elevation of liver function tests at least when compared to labs from less than a year ago which were essentially normal. The patient does not have a gallbladder anymore. bilirubin is not significantly elevated and she does not have significant pain over the liver. There is no evidence of any pancreatitis. No evidence of intrahepatic or extrahepatic significant ductal dilation on the CT scan. I would like for the patient to have a right upper quadrant ultrasound for further evaluation of that. that is not available to us here tonight.GI consultation may be of benefit on this patient as well. The patient does have a significant history of CHF as well as chronic lung disease and diabetes. If it did come down to surgical intervention for the bowel obstruction the patient may be better served at a larger hospital with more specialists for any complications that may arise during or after the surgery. transferred for higher level of care. 11/17/18 02:38 - Results/Orders Results/Orders: acute abdominal series shows some dilated loops of small bowel possibly consistent with a small bowel obstruction. Laboratory Results - last 24 hr 11/16/18 11/16/18 11/16/18 22:34 22:45 22:45 WBC 10.6 RBC 4.62 Hgb 13.5 Hct 41.0 MCV 88.7 MCH 29.1 MCHC 32.8 L RDW 13.5 Plt Count 228 MPV 8.7 Absolute Neuts (auto) 8.20 H Absolute Lymphs (auto) 1.30 Absolute Monos (auto) 0.70 Absolute Eos (auto) 0.20 Absolute Basos (auto) 0.10 Neutrophils % 78.0 Lymphocytes % 12.6 L Monocytes % 7.0 Eosinophils % 1.9 Basophils % 0.5 Sodium 131 L Potassium 2.9 L Chloride 87 L Carbon Dioxide 29 Anion Gap 17.9 BUN 10 Creatinine 0.95 BUN/Creatinine Ratio 10.5 Random Glucose 160 H Serum Osmolality 265.1 L Lactic Acid Calcium 9.0 Magnesium 2.1 Total Bilirubin 0.6 AST 157 H ALT 154 H Alkaline Phosphatase 196 H Serum Total Protein 8.1 Albumin 3.7 Globulin 4.4 H Albumin/Globulin Ratio 0.8 L Amylase 35 Lipase 28 TSH 3.16 Urine Color Yellow Urine Appearance Clear Urine pH 6.0 Ur Specific Beeson 1.015 Urine Protein Trace Urine Glucose (UA) Negative Urine Ketones Negative Urine Blood Trace-lysed H Urine Nitrite Negative Urine Bilirubin Negative Urine Urobilinogen 0.2 Ur Leukocyte Esterase Negative Urine RBC 0-1 Urine WBC 0-1 Ur Epithelial Cells 5-10 Amorphous Sediment Trace Urine Bacteria Rare 11/16/18 22:45 WBC RBC Hgb Hct MCV MCH MCHC RDW Plt Count MPV Absolute Neuts (auto) Absolute Lymphs (auto) Absolute Monos (auto) Absolute Eos (auto) Absolute Basos (auto) Neutrophils % Lymphocytes % Monocytes % Eosinophils % Basophils % Sodium Potassium Chloride Carbon Dioxide Anion Gap BUN Creatinine BUN/Creatinine Ratio Random Glucose Serum Osmolality Lactic Acid 1.8 Calcium Magnesium Total Bilirubin AST ALT Alkaline Phosphatase Serum Total Protein Albumin Globulin Albumin/Globulin Ratio Amylase Lipase TSH Urine Color Urine Appearance Urine pH Ur Specific Beeson Urine Protein Urine Glucose (UA) Urine Ketones Urine Blood Urine Nitrite Urine Bilirubin Urine Urobilinogen Ur Leukocyte Esterase Urine RBC Urine WBC Ur Epithelial Cells Amorphous Sediment Urine Bacteria acute hepatitis panel and blood culture have been drawn. CT scan of the abdomen and pelvis with IV contrast shows a developing small bowel obstruction with significant thickening of the terminal ileum, infection versus inflammation. Diffuse enteritis. Direct visualization of the terminal ileum is recommended if able. Fatty infiltration of the liver. There is no mention of any intrahepatic or extrahepatic ductal dilation. attempted call to dr pedro at [phone]. unable to contact. Departure - Departure Clinical Impression: Small bowel obstruction, Hypokalemia, Hepatitis Terminal ileitis of small intestine Qualifiers: Digestive disease complication type: with intestinal obstruction Qualified Code(s): K50.012 - Crohn's disease of small intestine with intestinal obstruction Disposition: Transfer to Hospital Departure Forms: ED Discharge - Pt. Copy, Patient Portal Self Enrollment Referrals: Lenin Nuñez MD [Primary Care Provider] - 1-2 Weeks Home Medications: Ambulatory Orders Lisinopril 10 mg PO DAILY 09/20/14 Sertraline HCl 100 mg PO DAILY 09/20/14 ARIPiprazole [Abilify] 5 mg PO DAILY 08/25/16 Albuterol Inhaler [Ventolin Hfa Inhaler] 2 puff INH Q4H PRN 12/20/16 metFORMIN HCL [Glucophage] 500 mg PO BID 04/24/17 Metoprolol Tartrate 25 mg PO BID 06/24/17 Albuterol Sulfate Nebs [Proventil Nebs] 2.5 mg INH Q4HR PRN #30 vial 06/28/17 Furosemide [Lasix] 20 mg PO DAILY #30 tab 06/28/17 Celecoxib 200 mg DAILY 11/16/18 Transfer to Outside Facility - Transfer Information Decision to Transfer Date: 11/17/18 Decision to Transfer Time: 02:39 Reason for Transfer: required specialist not available Accepting Facility: [facility]
[2018-11-17] MEDS ORDERED: KCL 40MEQ/NS 1,000 ML IVS ONE (01:24)
[2018-11-17] MEDS ORDERED: PROMETHAZINE HCL INJ 25 MG in SODIUM CHLORIDE 0.9% 50ML 50 ML IVPB ONE (01:33)
[2018-11-17] MEDS ORDERED: SODIUM CHLORIDE 0.9% 50ML 50 ML ONE (01:34)
[2018-11-17] MEDS ORDERED: PROMETHAZINE HCL INJ 25 MG/ML VIAL ONE (01:34)
--- NOTE | 2018-11-17 01:42 | CT ---
EXAM: CT Abdomen and Pelvis With Intravenous Contrast CLINICAL HISTORY: The patient is 63 years old and is Female; abd pain, nv, increased lfts TECHNIQUE: Axial computed tomography images of the abdomen and pelvis with intravenous contrast. Sagittal and coronal reformatted images were created and reviewed. This CT exam was performed using one or more of the following dose reduction techniques: automated exposure control, adjustment of the mA and/or kV according to patient size, and/or use of iterative reconstruction technique. COMPARISON: No relevant prior studies available. FINDINGS: LUNG BASES: Unremarkable. No mass. No consolidation. ABDOMEN: LIVER: There is a diffuse decrease in hepatic parenchymal density, consistent with fatty infiltration. GALLBLADDER AND BILE DUCTS: Surgical clips are present in the right upper quadrant, consistent with previous cholecystectomy. PANCREAS: Fatty infiltration of the pancreas is noted. SPLEEN: Unremarkable. ADRENALS: Unremarkable. No mass. KIDNEYS AND URETERS: Unremarkable. The kidneys enhance symmetrically. No obstructing renal or ureteral calculus is seen. No hydronephrosis or hydroureter. No perinephric fluid or stranding. STOMACH AND BOWEL: The stomach is distended with fluid and food contents. The majority the small bowel is dilated and fluid-filled with multiple air-fluid levels. There is focal thickening at the level of the terminal ileum. A moderate amount stool is present throughout the colon. PELVIS: APPENDIX: The appendix is normal in caliber without surrounding inflammation. BLADDER: The bladder is not well distended. REPRODUCTIVE: Unremarkable as visualized. ABDOMEN and PELVIS: INTRAPERITONEAL SPACE: Unremarkable. No free air. No significant fluid collection. BONES/JOINTS: Multilevel degenerative change of the spine is present. SOFT TISSUES: The soft tissues are normal. VASCULATURE: Unremarkable. No abdominal aortic aneurysm. LYMPH NODES: Unremarkable. No enlarged lymph nodes. IMPRESSION: 1. Findings suggestive of diffuse enteritis and associated ileus/developing obstruction. 2. Suggestion of focal wall thickening involving the terminal ileum which may be secondary to an infectious or inflammatory process. A discrete mass is not seen; however, given the fullness, direct visualization should be considered. Electronically signed by: Zaria Rajput MD 11/17/2018 1:40 AM CDT
[2018-11-17] MEDS ORDERED: PIPERACILLIN/TAZOBACTAM 3.375 GM in SODIUM CHLORIDE 0.9% 100ML 100 ML IVPB ONE (02:04)
[2018-11-17] MEDS ORDERED: SODIUM CHLORIDE 0.9% 100ML 100 ML IVPB ONE (02:05)
[2018-11-17] MEDS ORDERED: PIPERACILLIN/TAZOBACTAM 3.375 GM VIAL IVPB ONE (02:05)
--- NOTE | 2018-11-17 03:01 | RAD ---
EXAM: Single view chest. INDICATION: NG tube placement. COMPARISON: Chest x-ray: 06/26/17. FINDINGS: Cardiac silhouette: Unremarkable. Scarlet: Unremarkable. Lobar consolidation: None. Pleural effusion: None. Pneumothorax: None. Other: An NGT terminates in the stomach. Bones: Unremarkable. Other: None. IMPRESSION: Satisfactory position of the nasogastric tube. Electronically signed by: José Antonio Orr MD 11/17/2018 3:00 AM CDT
[2018-11-17 03:03] VITALS: O2SAT 94
[2018-11-17 04:00] VITALS: BP 146/83
== END 2018-11-17 04:00 | disposition short-term general hospital (02) ==
LOC: ER 22:02
DX: K56.609 Unspecified intestinal obstruction, unspecified as to partial versus complete obstruction (principal); E87.6 Hypokalemia; K50.012 Crohn's disease of small intestine with intestinal obstruction; K75.9 Inflammatory liver disease, unspecified; K76.0 Fatty (change of) liver, not elsewhere classified; E86.0 Dehydration; E66.01 Morbid (severe) obesity due to excess calories; J45.909 Unspecified asthma, uncomplicated; I51.9 Heart disease, unspecified; I50.9 Heart failure, unspecified; I11.0 Hypertensive heart disease with heart failure; E11.9 Type 2 diabetes mellitus without complications; K21.9 Gastro-esophageal reflux disease without esophagitis; Z90.49 Acquired absence of other specified parts of digestive tract; Z85.3 Personal history of malignant neoplasm of breast; Z79.899 Other long term (current) drug therapy; Z79.84 Long term (current) use of oral hypoglycemic drugs; Z68.41 Body mass index [BMI] 40.0-44.9, adult
CPT/HCPCS: 36415; 71045; 74019; 74177; 80053; 81001; 82150; 83605; 83690; 83735; 84443; 85025; 87040; A4216; J2543; J2550; J3480; J7050

== ENCOUNTER → 2019-01-13 | Outpatient (CLI) | payer OTHER, MEDICAID | LOC: LAB.O 13:11 | PROVIDERS: ATTEND Internal Medicine Nephrology | DX: N18.4 Chronic kidney disease, stage 4 (severe) (principal) ==

== ENCOUNTER → 2019-01-19 | Outpatient (CLI) | payer OTHER, MEDICAID ==
--- NOTE | 2019-01-20 11:05 | US ---
EXAM DESCRIPTION: Renal: Ultrasound. CLINICAL HISTORY: 63 years Female CHRONIC KIDNEY DISEASE. Colon cancer with chemotherapy. COMPARISON: CT abdomen November 2018. TECHNIQUE: Transcutaneous scanning: Two-dimensional and Doppler modes. Technically difficult study due to patient obesity. FINDINGS: Right kidney measures 6.9 x 5.5 x 5.2 cm; mid-renal cortical thickness 10 mm . Increased cortical echogenicity equal to the liver. No hydronephrosis No echogenic stones. Lobulated contour of the kidney with no perinephric fluid. Normal vascularity. Proximal ureter not seen. Left kidney measures 8.0 x 5.1 x 5.0 cm; mid-renal cortical thickness 7 mm. Increased cortical echogenicity equal to the liver. No hydronephrosis. No echogenic stones. Lobulated contour of the kidney with no perinephric fluid. Normal vascularity.. Proximal ureter not seen.. Urinary bladder was visualized. Prevoid volume 44.3 mL. Ureteral jet in the bladder not seen. No voiding. Abdominal aorta: not measured. IMPRESSION: 1. Technically difficult study due to patient large body habitus and difficulty positioning for images. 2. Bilateral renal atrophy also involving the cortex with increased cortical echogenicity equal to the liver. Lobulated capsule also indicates chronic medical renal disease. No echogenic stones, no hydronephrosis, and no perirenal fluid bilaterally. 3. Bladder minimally distended. Patient unable to void. No ureteral jets seen in the bladder. Electronically signed by: Amado Rodriguez MD 01/20/2019 11:03 AM SKIN FORMER
== END ==
LOC: US 08:00
PROVIDERS: ATTEND Internal Medicine Nephrology
DX: N18.4 Chronic kidney disease, stage 4 (severe) (principal); N26.1 Atrophy of kidney (terminal)

== ENCOUNTER 2019-03-01 15:25 | Emergency (ER) | payer OTHER, MEDICAID ==
[2019-03-01 15:40] VITALS: O2SAT 97
[2019-03-01] MEDS ORDERED: LIDOCAINE HCL 2% (MOUTH-THROAT) 15 ML UD MT ONE (16:54)
[2019-03-01] MEDS ORDERED: HYDROcodone 10MG/APAP 325MG 1 EA TAB PO ONE (16:56)
[2019-03-01 17:32] VITALS: BP 122/48; TEMP 97.8
--- NOTE | 2019-03-01 17:46 | ED.PDOC ---
History of Present Illness - General Chief Complaint: Skin/Abrasion/Tear Stated Complaint: Hemorrhoid Time Seen by Provider: 03/01/19 16:53 Additional Information: Patient is a 63-year-old female with chief complaint of rectal pain. Patient has a past medical history of colon cancer and she is presently going through chemotherapy. She indicates that for the past week she has had diarrhea and loose stools from her chemotherapy and when she has a bowel movement she says it feels like "I am pooping razor blades". Patient denies melena or blood in her stool. Patient indicates that she has a hemorrhoid but says that this hemorrhoid is not new and has been present "since [employer]". Patient says her sister has been placing topical hemorrhoid cream on the site without any improvement. Patient denies fever, chills, abdominal pain, nausea, vomiting, dysuria. Her symptoms are limited to anal pain. Patient has no other complaints at this time. - History of Present Illness Allergies/Adverse Reactions: Allergies NO KNOWN ALLERGY Allergy (Verified 06/25/17 09:09) Home Medications: Ambulatory Orders Lisinopril 10 mg PO DAILY 09/20/14 Sertraline HCl 100 mg PO DAILY 09/20/14 ARIPiprazole [Abilify] 5 mg PO DAILY 08/25/16 Albuterol Inhaler [Ventolin Hfa Inhaler] 2 puff INH Q4H PRN 12/20/16 metFORMIN HCL [Glucophage] 500 mg PO BID 04/24/17 Metoprolol Tartrate 25 mg PO BID 06/24/17 Albuterol Sulfate Nebs [Proventil Nebs] 2.5 mg INH Q4HR PRN #30 vial 06/28/17 Furosemide [Lasix] 20 mg PO DAILY #30 tab 06/28/17 Celecoxib 200 mg DAILY 11/16/18 Acetaminophen W/ Codeine [Tylenol W/ CODEINE #3] 1 ea PO Q6H PRN #20 03/01/19 Hydrocortisone 25 mg Supp [Anusol-Hc] 0 ea [place] BID #15 sup 03/01/19 Lidocaine (Anorectal) [Rectasmoothe] 5 % TOP TID #1 tube 03/01/19 Review of Systems - Review of Systems Constitutional: States: no symptoms reported. Denies: chills, fever EENTM: States: no symptoms reported Respiratory: States: no symptoms reported. Denies: cough, short of breath Cardiology: States: no symptoms reported. Denies: chest pain, palpitations Gastrointestinal/Abdominal: States: diarrhea. Denies: abdominal pain, nausea, vomiting Genitourinary: States: no symptoms reported. Denies: dysuria Musculoskeletal: States: no symptoms reported. Denies: muscle pain All other Systems: Reviewed and Negative Past Medical History (General) - Patient Medical History Hx Seizures: No Hx Stroke: No Hx Dementia: No Hx Asthma: Yes Hx of COPD: No Hx Cardiac Disorders: Yes Hx Congestive Heart Failure: Yes Hx Pacemaker: No Hx Hypertension: Yes Hx Thyroid Disease: No Hx Diabetes: Yes Hx Gastroesophageal Reflux: Yes Hx Renal Disease: No Hx Cancer: Yes - Breast Hx of HIV: No Hx Hepatitis C: No Hx MRSA: No MRSA Source:: Wound - Vaccination History Hx Tetanus, Diphtheria Vaccination: Yes Hx Influenza Vaccination: Yes Hx Pneumococcal Vaccination: Yes - Social History Hx Tobacco Use: No Hx Chewing Tobacco Use: No Hx Alcohol Use: No Hx Substance Use: No Hx Substance Use Treatment: No Hx Depression: No Hx Physical Abuse: No Hx Emotional Abuse: No Hx Suspected Abuse: No - Female History Patient : No Family Medical History - Family History Mother Family History: Unknown Living Status: Cause of : had impaction in colon Hx Family Hypertension: Yes Hx Cardiac Disease: Yes - parents Hx Family Diabetes: Yes - parents Physical Exam - Physical Exam General Appearance: Alert, Comfortable, No apparent distress, Obese Ears, Nose, Throat: normal ENT inspection Neck: normal inspection Respiratory: chest non-tender, lungs clear, normal breath sounds, no respiratory distress, no accessory muscle use Cardiovascular/Chest: regular rate, rhythm, no edema, no gallop, no JVD, no murmur Gastrointestinal/Abdominal: normal bowel sounds, non tender, soft, no organomegaly Rectal Exam: other - There is a small non-thrombosed hemorrhoid in the 9 o'clock position. There is no obvious fissure, erythema or lesions noted to the anal region. Patient is not able to tolerate digital rectal exam due to pain. 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 Clinically she does not have a thrombosed hemorrhoid, and there are no anal fissures noted. Will DC with topical lidocaine and steroid and will give referral to GI. Vital signs stable, patient is NAD and looks clinically well and I believe is safe for discharge with outpatient follow-up. Follow-up instructions, discharge instructions and return to ED precautions discussed with patient. Patient voices understanding and willingness to comply with instructions. All laboratory and radiographic results have been discussed with the patient, and all questions answered. Patient is happy with plan. Departure - Departure Clinical Impression: Anal pain Time of Disposition: 17:52 Disposition: Discharge to Home or Self Care Condition: Fair Departure Forms: ED Discharge - Pt. Copy, Patient Portal Self Enrollment Instructions: Colic (DC), Diarrhea in Adolescents and Adults Referrals: Lenin Nuñez MD [Primary Care Provider] - 1-5 Days MERY NOYOLA MD [Physicians] - 1-5 Days Prescriptions: Acetaminophen W/ Codeine [Tylenol W/ CODEINE #3] 1 ea PO Q6H PRN #20 PRN Reason: Pain Hydrocortisone 25 mg Supp [Anusol-Hc] 0 ea DE BID #15 sup Lidocaine (Anorectal) [Rectasmoothe] 5 % TOP TID #1 tube Home Medications: Ambulatory Orders Lisinopril 10 mg PO DAILY 09/20/14 Sertraline HCl 100 mg PO DAILY 09/20/14 ARIPiprazole [Abilify] 5 mg PO DAILY 08/25/16 Albuterol Inhaler [Ventolin Hfa Inhaler] 2 puff INH Q4H PRN 12/20/16 metFORMIN HCL [Glucophage] 500 mg PO BID 04/24/17 Metoprolol Tartrate 25 mg PO BID 06/24/17 Albuterol Sulfate Nebs [Proventil Nebs] 2.5 mg INH Q4HR PRN #30 vial 06/28/17 Furosemide [Lasix] 20 mg PO DAILY #30 tab 06/28/17 Celecoxib 200 mg DAILY 11/16/18 Acetaminophen W/ Codeine [Tylenol W/ CODEINE #3] 1 ea PO Q6H PRN #20 03/01/19 Hydrocortisone 25 mg Supp [Anusol-Hc] 0 ea DE BID #15 sup 03/01/19 Lidocaine (Anorectal) [Rectasmoothe] 5 % TOP TID #1 tube 03/01/19
== END 2019-03-01 18:00 | disposition home or self-care (01) ==
LOC: ER 15:25
DX: K62.89 Other specified diseases of anus and rectum (principal); C18.9 Malignant neoplasm of colon, unspecified; J45.909 Unspecified asthma, uncomplicated; I51.9 Heart disease, unspecified; I50.9 Heart failure, unspecified; I11.0 Hypertensive heart disease with heart failure; E11.9 Type 2 diabetes mellitus without complications; K21.9 Gastro-esophageal reflux disease without esophagitis; Z92.21 Personal history of antineoplastic chemotherapy; Z85.3 Personal history of malignant neoplasm of breast; Z79.899 Other long term (current) drug therapy

== ENCOUNTER 2019-03-27 16:58 | Inpatient (IN) | payer OTHER, MEDICAID ==
[2019-03-27] MEDS ORDERED: POTASSIUM CHLORIDE ELIXIR 20 MEQ/15 ML UD PO ONE (18:13)
[2019-03-27] MEDS ORDERED: POTASSIUM CHLORIDE INJ 40 MEQ 40 MEQ in SODIUM CHLORIDE 0.9% 250ML 250 ML IVPB ONE (18:14)
[2019-03-27] MEDS ORDERED: MAGNESIUM SULFATE PREMIX 4GM 4 GM in PREMIX BAG 1 BAG IVPB ONE (18:15)
[2019-03-27] MEDS ORDERED: MAGNESIUM SULFATE PREMIX 4GM 50 ML IVPB ONE (18:53)
--- NOTE | 2019-03-27 19:18 | ED.PDOC ---
History of Present Illness - General Chief Complaint: General Stated Complaint: WEAK AND THINKS LAB ARE LOW Time Seen by Provider: 03/27/19 17:01 Source: patient Exam Limitations: no limitations - History of Present Illness Initial Comments: The patient is a 63-year-old female presented emergency room secondary to a feeling of fatigue and generalized body aches. She reports this symptom before when her potassium and magnesium are low. Looking back she has had quite a few years of low potassium released. No chest pain. No palpitations. No significant shortness of breath. She is currently undergoing chemotherapy for colon cancer. She is uncertain of her doses of medications. The patient is pleasant and cooperative and in no real distress. She ambulated without difficulty. Timing/Duration: other - 2 days Severity: moderate Improving Factors: nothing Worsening Factors: nothing Associated Symptoms: malaise, nausea/vomiting - Nausea but no vomiting, weakness - Subjective Allergies/Adverse Reactions: Allergies NO KNOWN ALLERGY Allergy (Verified 03/27/19 17:19) Home Medications: Ambulatory Orders Sertraline HCl 100 mg PO DAILY 09/20/14 ARIPiprazole [Abilify] 5 mg PO DAILY 08/25/16 Albuterol Inhaler [Ventolin Hfa Inhaler] 2 puff INH Q4H PRN 12/20/16 Metoprolol Tartrate 25 mg PO BID 06/24/17 Albuterol Sulfate Nebs [Proventil Nebs] 2.5 mg INH Q4HR PRN #30 vial 06/28/17 Furosemide [Lasix] 20 mg PO DAILY #30 tab 06/28/17 Celecoxib 200 mg DAILY 11/16/18 Acetaminophen W/ Codeine [Tylenol W/ CODEINE #3] 1 ea PO Q6H PRN #20 03/01/19 Hydrocortisone 25 mg Supp [Anusol-Hc] 0 ea [place] BID #15 sup 03/01/19 Lidocaine (Anorectal) [Rectasmoothe] 5 % TOP TID #1 tube 03/01/19 Review of Systems - Review of Systems Constitutional: States: malaise EENTM: States: no symptoms reported Respiratory: States: no symptoms reported Cardiology: States: no symptoms reported Gastrointestinal/Abdominal: States: nausea Genitourinary: States: no symptoms reported Musculoskeletal: States: other - Body aches Skin: States: no symptoms reported Neurological: States: no symptoms reported Endocrine: States: no symptoms reported All other Systems: No Change from Baseline Past Medical History (General) - Patient Medical History Hx Seizures: No Hx Stroke: No Hx Dementia: No Hx Asthma: Yes Hx of COPD: No Hx Cardiac Disorders: Yes Hx Congestive Heart Failure: Yes Hx Pacemaker: No Hx Hypertension: Yes Hx Thyroid Disease: No Hx Diabetes: Yes Hx Gastroesophageal Reflux: Yes Hx Renal Disease: No Hx Cancer: Yes - Breast Hx of HIV: No Hx Hepatitis C: No Hx MRSA: No MRSA Source:: Wound Surgical History: cholecystectomy, Hysterectomy - Vaccination History Hx Tetanus, Diphtheria Vaccination: Yes Hx Influenza Vaccination: Yes Hx Pneumococcal Vaccination: Yes - Social History Hx Tobacco Use: No Hx Chewing Tobacco Use: No Hx Alcohol Use: No Hx Substance Use: No Hx Substance Use Treatment: No Hx Depression: No Hx Physical Abuse: No Hx Emotional Abuse: No Hx Suspected Abuse: No - Female History Patient is a Female of Child Bearing Age (10 -59 yrs old): No Patient : No Family Medical History - Family History Mother Family History: Unknown Living Status: Cause of : had impaction in colon Hx Family Hypertension: Yes Hx Cardiac Disease: Yes - parents Hx Family Diabetes: Yes - parents Physical Exam - Physical Exam General Appearance: Alert, Comfortable, No apparent distress Eye Exam: bilateral normal Ears, Nose, Throat: hearing grossly normal, normal pharynx Neck: full range of motion, supple Respiratory: lungs clear, normal breath sounds, no respiratory distress, no accessory muscle use Cardiovascular/Chest: normal peripheral pulses, no edema, other - Regular rate Peripheral Pulses: radial,right: 2+, radial,left: 2+ Gastrointestinal/Abdominal: non tender, soft Rectal Exam: deferred Back Exam: no vertebral tenderness Extremity: normal range of motion, non-tender, normal inspection, no calf tenderness, normal capillary refill 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 She is being replaced with both electrolytes in the IV form. She is also receiving oral potassium. She is being monitored on telemetry monitoring. Vital signs have remained stable. I do suspect that the patient has significantly low body stores of both electrolytes and will need additional rounds of replacement. I am uncertain if medications are contributing to the depletion of these. Hopefully tomorrow we will be able to obtain an accurate medication list on the patient. Admit for continued care. Patient is in agreement with the plan. yrn pedroza [id number] - Results/Orders Results/Orders: EKG shows normal axis. She does have a right bundle branch block. Rate is 89 bpm. Normal R wave progression. This EKG is fairly consistent with her previous EKG from a couple of years ago. Laboratory Tests 03/27/19 03/27/19 03/27/19 17:25 17:25 17:35 WBC 5.8 RBC 3.03 L Hgb 9.4 L Hct 28.0 L MCV 92.4 MCH 30.9 MCHC 33.4 RDW 15.1 H Plt Count 95 L MPV 8.6 Absolute Neuts (auto) 4.30 Absolute Lymphs (auto) 1.00 Absolute Monos (auto) 0.50 Absolute Eos (auto) 0.10 Absolute Basos (auto) 0.00 Neutrophils % 73.7 Lymphocytes % 16.7 L Monocytes % 8.4 Eosinophils % 0.9 L Basophils % 0.3 Sodium 139 Potassium 1.8 L* Chloride 96 L Carbon Dioxide 32 H Anion Gap 12.8 BUN 8 Creatinine 1.07 BUN/Creatinine Ratio 7.5 L Random Glucose 112 H Serum Osmolality 276.6 Calcium 7.7 L Magnesium 1.2 L Total Bilirubin 0.6 AST 25 ALT 11 Alkaline Phosphatase 96 Serum Total Protein 6.1 L Albumin 2.8 L Globulin 3.3 Albumin/Globulin Ratio 0.8 L Amylase 20 L Lipase 25 Urine Color Yellow Urine Appearance Sl cloudy Urine pH 6.0 Ur Specific [place] 1.015 Urine Protein 30 Urine Glucose (UA) Negative Urine Ketones Negative Urine Blood Trace-lysed H Urine Nitrite Negative Urine Bilirubin Negative Urine Urobilinogen 0.2 Ur Leukocyte Esterase Small H Urine RBC 0-1 Urine WBC 5-10 H Ur Epithelial Cells 10-20 Amorphous Sediment Trace Urine Bacteria 1+ - EKG/XRAY/CT CT Ordered: No CT Interpretation Call Back: No Departure - Departure Clinical Impression: Hypokalemia, Hypomagnesemia Disposition: Admit Patient Condition: Fair Departure Forms: ED Discharge - Pt. Copy, Patient Portal Self Enrollment Referrals: Lenin Nuñez MD [Primary Care Provider] - 1-2 Weeks Home Medications: Ambulatory Orders Sertraline HCl 100 mg PO DAILY 09/20/14 ARIPiprazole [Abilify] 5 mg PO DAILY 08/25/16 Albuterol Inhaler [Ventolin Hfa Inhaler] 2 puff INH Q4H PRN 12/20/16 Metoprolol Tartrate 25 mg PO BID 06/24/17 Albuterol Sulfate Nebs [Proventil Nebs] 2.5 mg INH Q4HR PRN #30 vial 06/28/17 Furosemide [Lasix] 20 mg PO DAILY #30 tab 06/28/17 Celecoxib 200 mg DAILY 11/16/18 Acetaminophen W/ Codeine [Tylenol W/ CODEINE #3] 1 ea PO Q6H PRN #20 03/01/19 Hydrocortisone 25 mg Supp [Anusol-Hc] 0 ea [place] BID #15 sup 03/01/19 Lidocaine (Anorectal) [Rectasmoothe] 5 % TOP TID #1 tube 03/01/19 Decision To Admit - Decistion To Admit Decision to Admit Reason: Medical Nature Decision to Admit Date: 03/27/19 Decision to Admit Time: 19:21
[2019-03-27] MEDS ORDERED: SODIUM CHLORIDE 0.9% 250ML 250 ML ONE (19:23)
[2019-03-27] MEDS ORDERED: POTASSIUM CHLORIDE 40mEq 20ML VIAL ONE (19:24)
--- NOTE | 2019-03-27 20:02 | HP ---
SUPERVISING PHYSICIAN: Francesca Mcintyre MD CHIEF COMPLAINT: Generalized weakness. HISTORY OF PRESENT ILLNESS: This is a 63-year-old female who came to the Emergency Room with generalized weakness, fatigue and some body aches. Apparently she has had this several times before and each time she has noted that her electrolytes were quite low. She denies any fever or chills. She denies any chest pain, shortness of breath. She is on chemotherapy for colon cancer and her last treatment was Wednesday. She also notes that yesterday she did have a little bit of dysuria. In the Emergency Room, she was seen and her potassium was 1.8 and magnesium was 1.2. In the Emergency Room, she received a dose p.o. potassium as well as IV potassium and gave her a dose of IV magnesium as well. She is referred for admission for electrolyte repletion. Additionally, she had a urinalysis which did show some bacteria and given the fact that she is on chemotherapy, we will treat with IV antibiotics. PAST MEDICAL HISTORY: 1. Colon cancer on chemotherapy. 2. History of breast cancer in the past. 3. Asthma. 4. Gastroesophageal reflux disease. 5. Paroxysmal atrial fibrillation. 6. Hypertension. 7. Type 2 diabetes mellitus. PAST SURGICAL HISTORY: 1. . 2. Cholecystectomy. 3. Left radical mastectomy. 4. Back surgery. MEDICATIONS: Please see medication reconciliation list once it is verified in the computer. ALLERGIES: NO KNOWN DRUG ALLERGIES. FAMILY HISTORY: Reviewed and noncontributory. SOCIAL HISTORY: No drinking, no smoking, no illicit drugs. REVIEW OF SYSTEMS: CONSTITUTIONAL: No fever or chills. No recent weight loss or weight gain, but positive for some fatigue. HEENT: No headaches, vision changes, ear pain, nasal congestion or throat pain. NECK: No neck stiffness, swelling or neck pain. RESPIRATORY: Positive for cough, but no shortness of breath or pleuritic chest pain. CARDIOVASCULAR: No chest pain, palpitations or peripheral edema. GASTROINTESTINAL: No nausea, vomiting, diarrhea, constipation or abdominal pain. GENITOURINARY: Positive for some dysuria, but no frequency or flank pain. MUSCULOSKELETAL: Positive for some muscle aches, but no significant joint pain or joint swelling. ENDOCRINE: No polydipsia, polyuria or polyphagia. No heat or cold intolerance. NEUROLOGIC: No syncope, paresthesias or seizures. PHYSICAL EXAMINATION: VITAL SIGNS: Blood pressure 103/65. Heart rate 87. Respiratory rate 20. Temperature 98.2. Oxygen saturation 97%. GENERAL: Ms. Delgado is a 63-year-old female in no active distress currently. NEUROLOGIC: The patient is alert and oriented. LUNGS: Clear to auscultation bilaterally. CARDIOVASCULAR: Regular rate and rhythm. Normal S1, S2. ABDOMEN: Soft. Positive bowel sounds. Obese. GENITOURINARY: Deferred. EXTREMITIES: The patient has generalized edema. Peripheral pulses are 2+. Capillary refill is less than 2 seconds. LABORATORY: Labs show white cell count 5.8, hemoglobin 9.4, hematocrit 28.0, platelet count 95. Chemistry with potassium 1.8, magnesium 1.2. The rest of her chemistry is pretty much unremarkable. Urinalysis shows 5 to 10 WBCs. ASSESSMENT: 1. Severe electrolyte imbalance. 2. Generalized weakness secondary to #1. 3. Urinary tract infection. 4. Anemia. 5. Thrombocytopenia. 6. Colon cancer on chemotherapy. 7. Diabetes mellitus, type 2. PLAN: At this time, the patient will be placed on some electrolyte repletion. She has already received the magnesium. She is getting the potassium currently. I will recheck the labs in the morning and continue repletion efforts if necessary. Additionally, of note, she does have 5 to 10 WBCs on UA, so I will put her on some Rocephin. The patient does have chronic pain and she states she sees a chronic pain doctor. She takes 10 mg of hydrocodone every 4 hours. I will resume this in addition to her other home medications once they are verified in the computer. I put her on DVT and GI ulcer prophylaxis as well. #[id number] [facility]
[2019-03-27] MEDS: HYDROcodone 10MG/APAP 325MG 1 EA TAB PO PRN (20:36)
[2019-03-27] MEDS ORDERED: SODIUM CHLORIDE 0.9% (FLUSH) 10 ML SYG IV PRN (20:44)
[2019-03-27] MEDS ORDERED: IV SET AND CAP CHANGE INJ INJ SCH (21:00)
[2019-03-27] MEDS ORDERED: SODIUM CHLORIDE 0.9% 50ML 50 ML ONE (21:10)
[2019-03-27] MEDS ORDERED: cefTRIAXone SODIUM 1 GM VIAL ONE (21:10)
[2019-03-27] MEDS: METOPROLOL TARTRATE 25 MG TAB PO SCH (21:12)
[2019-03-27] MEDS: cefTRIAXone SODIUM 1 GM in SODIUM CHL 0.9% 50ML MIN-BAG+ 50 ML IVPB SCH (21:14)
[2019-03-27] MEDS: ENOXAPARIN SODIUM 40 MG/0.4 ML SYG SUBCU SCH (22:14)
[2019-03-27] MEDS: PANTOPRAZOLE SODIUM IV 40 MG VIAL IV SCH (22:14)
[2019-03-28] MEDS: LACTATED RINGERS 1,000 ML IVS PRN (00:49)
[2019-03-28] MEDS: HYDROcodone 10MG/APAP 325MG 1 EA TAB PO PRN ×3 (02:00→21:18)
[2019-03-28] MEDS ORDERED: LEVALBUTEROL NEBS 1.25 MG/3 ML VIAL NEB ONE (05:44)
[2019-03-28] MEDS ORDERED: KCL 40 MEQ/WATER FOR INJ 100ML 40 MEQ in PREMIX BAG 1 BAG IVPB ONE ×2 (07:56→16:40)
[2019-03-28] MEDS ORDERED: POTASSIUM CHLORIDE 20 MEQ TAB PO ONE ×2 (07:56→16:41)
[2019-03-28] MEDS ORDERED: SERTRALINE HCL 50 MG TAB ONE (08:09)
[2019-03-28] MEDS ORDERED: CELECOXIB 100 MG CAP ONE (08:09)
[2019-03-28] MEDS ORDERED: KCL 40 MEQ/WATER FOR INJ 100ML 100 ML IVPB ONE ×2 (08:09→16:51)
[2019-03-28] MEDS: METOPROLOL TARTRATE 25 MG TAB PO SCH ×2 (08:55→21:19)
[2019-03-28] MEDS: SERTRALINE HCL 50 MG TAB PO SCH (08:55)
[2019-03-28] MEDS: ARIPiprazole 5 MG TAB PO SCH (08:55)
[2019-03-28] MEDS ORDERED: NON-FORMULARY MEDICATION 1 EA MIS (Sertraline Hcl [Sertraline Hcl] 100 MG) PO SCH (09:00)
[2019-03-28] MEDS ORDERED: NON-FORMULARY MEDICATION 1 EA MIS (Celecoxib [Celecoxib] 200 MG) PO SCH (09:00)
[2019-03-28] MEDS ORDERED: MAGNESIUM PO SCH (09:00)
[2019-03-28] MEDS ORDERED: POTASSIUM CHLORIDE 40 MEQ PO SCH (09:00)
[2019-03-28] MEDS: POTASSIUM CHLORIDE 20 MEQ TAB PO SCH (09:17)
[2019-03-28] MEDS: CELECOXIB 100 MG CAP PO SCH (09:19)
--- NOTE | 2019-03-28 10:23 | PN ---
SUPERVISING PHYSICIAN: Francesca Mcintyre MD DATE: 03/28/19 SUBJECTIVE: The patient states she feels a little bit tired today, but otherwise in no distress. OBJECTIVE: VITAL SIGNS: Blood pressure 109/50. Heart rate 70. Respiratory rate 18. Temperature 97.9. Oxygen saturation 98%. GENERAL: This is a 63-year-old female in no active distress. NEUROLOGIC: Alert and oriented. LUNGS: Clear to auscultation bilaterally. CARDIOVASCULAR: Regular rate and rhythm. Normal S1, S2. ABDOMEN: Soft. Positive bowel sounds. EXTREMITIES: Lower extremities with no positive edema. LABORATORY: Potassium 2.1, magnesium 2.0. ASSESSMENT: 1. Severe electrolyte imbalance. 2. Generalized weakness secondary to #1. 3. Urinary tract infection. 4. Anemia. 5. Thrombocytopenia. 6. Colon cancer on chemotherapy. 7. Diabetes mellitus, type 2. PLAN: Additional potassium will be administered today, 40 IV and 40 p.o. I will recheck her potassium this afternoon. Continue on the antibiotics for the urinary tract infection. #[id number] [facility]
[2019-03-28] MEDS ORDERED: ONDANSETRON INJ 4 MG/2 ML VIAL IV PRN (11:03)
[2019-03-28] MEDS ORDERED: SODIUM CHL 0.9% 50ML MIN-BAG+ 50 ML IVPB ONE (20:37)
[2019-03-28] MEDS ORDERED: cefTRIAXone SODIUM 1 GM VIAL ONE (20:38)
[2019-03-28] MEDS ORDERED: POTASSIUM CHLORIDE 20 MEQ TAB PO SCH (21:00)
[2019-03-28] MEDS ORDERED: busPIRone HCL 5 MG TAB PO SCH (21:00)
[2019-03-28] MEDS ORDERED: NON-FORMULARY MEDICATION 1 EA MIS (Potassium Chloride [K-Tab] 20 MEQ) PO SCH (21:00)
[2019-03-28] MEDS: cefTRIAXone SODIUM 1 GM in SODIUM CHL 0.9% 50ML MIN-BAG+ 50 ML IVPB SCH (21:19)
[2019-03-28] MEDS: PANTOPRAZOLE SODIUM IV 40 MG VIAL IV SCH (21:20)
[2019-03-28] MEDS: ENOXAPARIN SODIUM 40 MG/0.4 ML SYG SUBCU SCH (21:20)
[2019-03-29] MEDS: HYDROcodone 10MG/APAP 325MG 1 EA TAB PO PRN ×3 (01:15→14:24)
[2019-03-29] MEDS: LACTATED RINGERS 1,000 ML IVS PRN (06:17)
[2019-03-29] MEDS ORDERED: POTASSIUM CHLORIDE 20 MEQ TAB PO ONE ×2 (08:07→14:25)
[2019-03-29] MEDS ORDERED: KCL 40 MEQ/WATER FOR INJ 100ML 40 MEQ in PREMIX BAG 1 BAG IVPB ONE (08:07)
[2019-03-29] MEDS ORDERED: MAGNESIUM SULFATE PREMIX 2GM 2 GM in PREMIX BAG 1 BAG IVPB ONE (08:08)
[2019-03-29] MEDS ORDERED: KCL 40 MEQ/WATER FOR INJ 100ML 100 ML IVPB ONE (08:24)
[2019-03-29] MEDS: CELECOXIB 100 MG CAP PO SCH (08:44)
[2019-03-29] MEDS: ARIPiprazole 5 MG TAB PO SCH (08:44)
[2019-03-29] MEDS: METOPROLOL TARTRATE 25 MG TAB PO SCH (08:44)
[2019-03-29] MEDS: SERTRALINE HCL 50 MG TAB PO SCH (08:45)
[2019-03-29] MEDS ORDERED: MAGNESIUM SULFATE PREMIX 2GM 50 ML IVPB ONE (08:47)
[2019-03-29] MEDS ORDERED: MAGNESIUM OXIDE 400 MG TAB PO SCH (09:00)
[2019-03-29] MEDS: POTASSIUM CHLORIDE 20 MEQ TAB PO SCH (09:55)
[2019-03-29 10:37] VITALS: O2SAT 97
[2019-03-29 14:11] VITALS: BP 112/57; TEMP 98
--- NOTE | 2019-03-29 15:33 | DS ---
SUPERVISING PHYSICIAN: Francesca Mcintyre MD ADMISSION DIAGNOSIS: 1. Severe electrolyte imbalance. 2. Generalized weakness secondary to #1. 3. Urinary tract infection. 4. Anemia. 5. Thrombocytopenia. 6. Colon cancer on chemotherapy. 7. Diabetes mellitus, type 2. DISCHARGE DIAGNOSIS: 1. Severe electrolyte imbalance. 2. Generalized weakness secondary to #1. 3. Urinary tract infection. 4. Anemia. 5. Thrombocytopenia. 6. Colon cancer on chemotherapy. 7. Diabetes mellitus, type 2. HOSPITAL COURSE: This a 63-year-old female who came to the Emergency Room with generalized weakness, fatigue and body aches. She has had these symptoms before and at that time, her electrolytes were low. She denied any fever or chills, no chest pain or shortness of breath. She is on chemotherapy for colon cancer. Her last treatment was a week ago Wednesday. She did note she had a little bit of dysuria. In the Emergency Room, she was seen and found to have a potassium of 1.8 and magnesium of 1.2. She received a dose of p.o. potassium as well as IV potassium, followed by IV magnesium in the ER. She was also noted to have urinalysis consistent with urinary tract infection and therefore was admitted for these reasons. Throughout her stay here, she was given several doses of IV potassium and p.o. potassium along with magnesium. I placed her on Rocephin for the urinary tract infection as well. Urine culture is still pending, however, today on the day of discharge, the patient's electrolytes are quite a bit improved although potassium is still 3.3. Prior to discharge, I will give her another dose of potassium 40 mEq and then she will be on scheduled potassium and magnesium p.o. as well. She can followup with her primary care physician in one or two weeks. I have also written prescription for Ceftin to be completed as well for the urinary tract infection. [facility][id number] [facility]
== END 2019-03-29 15:25 | disposition home health service (06) | DRG 641 ==
LOC: ER 16:58 → MS 20:00 → OBSVTOIN 20:00
PROVIDERS: ADMIT Nurse Practitioner; ATTEND Nurse Practitioner
DX: E87.6 Hypokalemia (principal); N39.0 Urinary tract infection, site not specified; C18.9 Malignant neoplasm of colon, unspecified; E83.42 Hypomagnesemia; D64.9 Anemia, unspecified; D69.6 Thrombocytopenia, unspecified; E11.9 Type 2 diabetes mellitus without complications; J45.909 Unspecified asthma, uncomplicated; K21.9 Gastro-esophageal reflux disease without esophagitis; I48.0 Paroxysmal atrial fibrillation; I11.0 Hypertensive heart disease with heart failure; I50.9 Heart failure, unspecified; Z85.3 Personal history of malignant neoplasm of breast; Z79.899 Other long term (current) drug therapy

== ENCOUNTER → 2019-03-30 | Outpatient (CLI) | payer OTHER, MEDICAID ==
--- NOTE | 2019-03-30 12:32 | US ---
EXAM DESCRIPTION: Venous,Upper Extremity LT: ULTRASOUND. CLINICAL HISTORY: EDEMA OF UPPER EXTREMITY LEFT COMPARISON: None Available. TECHNIQUE: Two -dimensional and doppler sonographic evaluation of the deep venous system of the left upper extremity. FINDINGS: Doppler evaluation shows normal color flow and normal phasicity and augmentation of the left subclavian, jugular, axillary, basilic, brachial, radial vein and ulnar vein. The cephalic vein was not visualized. upper extremity deep veins showed normal occlusion with transducer pressure. Two-dimensional survey showed no echogenic thrombus within these veins. IMPRESSION: Duplex ultrasound evaluation of the left upper extremity deep venous system showing no thrombus . Electronically signed by: Amado Rodriguez MD 03/30/2019 12:30 PM [employer]
== END ==
LOC: YCFC.O 11:24
PROVIDERS: ATTEND Family Medicine
DX: R60.0 Localized edema (principal)